=== PATIENT | female | born 1980 | race Caucasian/White ===

== ENCOUNTER 2016-03-09 14:46 | Inpatient (IN) ==
[2016-03-09 15:31] LABS: Bilirubin,Urine Negative (Negative); Blood,Urine Negative (Negative); Clarity,Urine Cloudy (Clear); Color,Urine Yellow (Yellow); Glucose,Urine (UA) Normal (Normal); Ketones,Urine Negative (Negative); Leukocyte Esterase,Urine Trace (Negative); Nitrite,Urine Negative (Negative); PH,Urine 6.5 pH Units (5.0-8.0); Protein,Urine 30 mg/dL (Neg-Trace); Specific Gravity,Urine 1.017 (1.010-1.025); Urobilinogen,Urine Normal (Normal)
[2016-03-09 15:39] LABS: Amphetamine Screen,Urine Negative ng/mL (Cutoff=1000); Barbiturate Screen,Urine Negative ng/mL (Cutoff=200); Benzodiazepines Screen,Urine Negative ng/mL (Cutoff=200); Cannabinoid Screen,Urine Positive ng/mL (Cutoff = 50); Cocaine Screen,Urine Negative ng/mL (Cutoff= 300); Opiate Screen,Urine Negative ng/mL (Cutoff=300); Phencyclidine Screen,Urine Negative ng/mL (Cutoff=25)
[2016-03-09 15:43] LABS: Bacteria,Urine Moderate per hpf (None-Few); WBC,Urine 0-3 per hpf (0-3)
[2016-03-09 15:44] LABS: RBC,Urine 0-3 per hpf (0-3); Squamous Epithelial Cell,Urine Few per lpf (None-Few)
[2016-03-09 15:45] LABS: Basophils # 0.1 K/mcL (0.0-0.2); Basophils % 0.7 %; Eosinophils # 0.5 K/mcL (0.0-0.6); Eosinophils % 3.3 %; Hematocrit 43.4 % (35.3-44.9); Hemoglobin 14.7 g/dL (11.5-15.4); Immature Granulocytes % 0.6 % (0-4); Lymphocytes # 3.3 K/mcL (0.6-4.6); Lymphocytes % 22.1 %; Mean Corpuscular HGB Conc 33.9 g/dL (31.6-35.5); Mean Corpuscular Hemoglobin 30.8 pg (28.0-33.3); Mean Platelet Volume 9.1 fL (9.4-12.4); Monocytes # 0.8 K/mcL (0.0-1.3); Monocytes % 5.2 %; Neutrophils # 10.3 K/mcL (1.6-8.9); Platelet Count 317 K/mcL (140-400); Red Blood Count 4.77 M/mcL (3.82-4.97); Red Cell Distribution Width 12.3 % (11.5-14.5); Segmented Neutrophils % 68.1 %
[2016-03-09 16:03] LABS: BUN/Creatinine Ratio 9 (6-26); Blood Urea Nitrogen 8 mg/dL (7-20); Calcium 9.4 mg/dL (8.6-10.8); Carbon Dioxide 19 mEq/L (19-29); Chloride 112 mEq/L (98-109); Glucose 115 mg/dL (70-99); Osmolality,Calculated 285 (280-300); Potassium 3.6 mEq/L (3.5-4.5); Sodium 138 mEq/L (136-145); eGFR For African Americans > 60 (> 60); eGFR For Non-African Americans > 60 (> 60)
[2016-03-09 16:04] LABS: Acetaminophen < 1.0 mcg/mL (10-30); Ethanol < 10 mg/dL (0-10); Salicylate < 5.0 mg/dL (15-30)
--- NOTE | 2016-03-09 16:05 | Emergency Department Note ---
Disposition Clinical Impression: Suicidal ideation, Bipolar disorder Disposition: Admitted As Inpatient Condition: Fair General Adult HPI - General Chief complaint: ED Psychiatric Symptoms Stated complaint: SI/ needs medication eval Source: patient Limitations: no limitations - History of Present Illness Pain Scale: 0 - Related Data Home Medications Medication Instructions Recorded Confirmed Benztropine [Cogentin] 0.5 mg PO BID 03/09/16 03/09/16 Folic Acid [Folic Acid] 2 mg PO DAILY 03/09/16 03/09/16 [place] Carbonate [[place] 300 mg PO DAILY 03/09/16 03/09/16 Carbonate] [place] Carbonate [[place] 600 mg PO BID 03/09/16 03/09/16 Carbonate] Paliperidone [Paliperidone ER] 3 mg PO DAILY 03/09/16 03/09/16 Allergies Allergy/AdvReac Type Severity Reaction Status Date / Time No Known Allergies Allergy Verified 11/06/15 20:02 Past Medical History - Past Medical History Medical history: Reports: no medical history Psychiatric history: Reports: bipolar - Social History Smoking Status: Current every day smoker Smokeless Tobacco Status: No Alcohol use: Reports: none Drug use: Reports: none Physical Exam - General Limitations: no limitations General appearance: alert, in no apparent distress Course - Reevaluation(s) Reevaluation #1: I saw the patient with resident, Dr. Terrazas. Patient presents with a complaint of depression and suicidal ideation. She has had trouble with this in the past. She denies any medical complaints at this time. No medical problems were identified on physical examination. She is undergoing laboratory screening evaluation at this time. If everything is negative we will contact [facility] to evaluate the patient. Time: 16:05 Vital Signs Temperature 97.1 F L 03/09/16 14:50 Pulse Rate 74 03/09/16 14:50 Respiratory Rate 18 03/09/16 14:50 Blood Pressure 132/87 03/09/16 14:50 O2 Sat by Pulse Oximetry 98 03/09/16 14:50 Temperature 98.6 F 03/10/16 20:08 Pulse Rate 55 03/10/16 20:08 Respiratory Rate 16 03/10/16 20:08 Blood Pressure 122/76 03/10/16 20:08 O2 Sat by Pulse Oximetry 98 03/09/16 15:33 Oxygen Delivery Oxygen Delivery Room Air Medical Decision Making - Lab Data Result diagrams: 03/09/16 15:39 03/09/16 15:39 Lab Results 03/09/16 03/09/16 03/09/16 Range/Units 15:10 15:10 15:39 WBC 15.1 H (4.3-11.1) K/mcL RBC 4.77 (3.82-4.97) M/mcL Hgb 14.7 (11.5-15.4) g/dL Hct 43.4 (35.3-44.9) % MCV 91.0 (83.0-100.0) fL MCH 30.8 (28.0-33.3) pg MCHC 33.9 (31.6-35.5) g/dL RDW 12.3 (11.5-14.5) % Plt Count 317 (140-400) K/mcL MPV 9.1 L (9.4-12.4) fL Immature Gran % 0.6 (0-4) % Seg Neutrophils % 68.1 % Lymphocytes % 22.1 % Monocytes % 5.2 % Eosinophils % 3.3 % Basophils % 0.7 % Neutrophils # 10.3 H (1.6-8.9) K/mcL Lymphocytes # 3.3 (0.6-4.6) K/mcL Monocytes # 0.8 (0.0-1.3) K/mcL Eosinophils # 0.5 (0.0-0.6) K/mcL Basophils # 0.1 (0.0-0.2) K/mcL Sodium (136-145) mEq/L Potassium (3.5-4.5) mEq/L Chloride (98-109) mEq/L Carbon Dioxide (19-29) mEq/L BUN (7-20) mg/dL Creatinine (0.57-1.11) mg/dL Est GFR ( Amer) (> 60) Est GFR (Non-Af Amer) (> 60) BUN/Creatinine Ratio (6-26) Glucose (70-99) mg/dL Calculated Osmolality (280-300) Calcium (8.6-10.8) mg/dL Urine Color Yellow (Yellow) Urine Clarity Cloudy A (Clear) Urine pH 6.5 (5.0-8.0) pH Units Ur Specific [place] 1.017 (1.010-1.025) Urine Protein 30 H (Neg-Trace) mg/dL Urine Glucose (UA) Normal (Normal) mg/dL Urine Ketones Negative (Negative) mg/dL Urine Blood Negative (Negative) Urine Nitrite Negative (Negative) Urine Bilirubin Negative (Negative) Urine Urobilinogen Normal (Normal) mg/dL Ur Leukocyte Esterase Trace H (Negative) Urine Microscopic RBC 0-3 (0-3) per hpf Urine Microscopic WBC 0-3 (0-3) per hpf Ur Squamous Epith Cells Few (None-Few) per lpf Urine Bacteria Moderate H (None-Few) per hpf Salicylates (15-30) mg/dL Urine Opiates Screen Negative (Sdsrpe=694) ng/mL Acetaminophen (10-30) mcg/mL Ur Barbiturates Screen Negative (Qefmqj=933) ng/mL Ur Phencyclidine Scrn Negative (Cutoff=25) ng/mL Ur Amphetamines Screen Negative (Kukqtz=3097) ng/mL U Benzodiazepines Scrn Negative (Ssbvuf=812) ng/mL [place] (0.6-1.2) mEq/L Urine Cocaine Screen Negative (Cutoff= 300) ng/mL U Marijuana (THC) Screen Positive H (Cutoff = 50) ng/mL Ethyl Alcohol (0-10) mg/dL 03/09/16 03/09/16 Range/Units 15:39 15:39 WBC (4.3-11.1) K/mcL RBC (3.82-4.97) M/mcL Hgb (11.5-15.4) g/dL Hct (35.3-44.9) % MCV (83.0-100.0) fL MCH (28.0-33.3) pg MCHC (31.6-35.5) g/dL RDW (11.5-14.5) % Plt Count (140-400) K/mcL MPV (9.4-12.4) fL Immature Gran % (0-4) % Seg Neutrophils % % Lymphocytes % % Monocytes % % Eosinophils % % Basophils % % Neutrophils # (1.6-8.9) K/mcL Lymphocytes # (0.6-4.6) K/mcL Monocytes # (0.0-1.3) K/mcL Eosinophils # (0.0-0.6) K/mcL Basophils # (0.0-0.2) K/mcL Sodium 138 (136-145) mEq/L Potassium 3.6 (3.5-4.5) mEq/L Chloride 112 H (98-109) mEq/L Carbon Dioxide 19 (19-29) mEq/L BUN 8 (7-20) mg/dL Creatinine 0.88 (0.57-1.11) mg/dL Est GFR ( Amer) > 60 (> 60) Est GFR (Non-Af Amer) > 60 (> 60) BUN/Creatinine Ratio 9 (6-26) Glucose 115 H (70-99) mg/dL Calculated Osmolality 285 (280-300) Calcium 9.4 (8.6-10.8) mg/dL Urine Color (Yellow) Urine Clarity (Clear) Urine pH (5.0-8.0) pH Units Ur Specific [place] (1.010-1.025) Urine Protein (Neg-Trace) mg/dL Urine Glucose (UA) (Normal) mg/dL Urine Ketones (Negative) mg/dL Urine Blood (Negative) Urine Nitrite (Negative) Urine Bilirubin (Negative) Urine Urobilinogen (Normal) mg/dL Ur Leukocyte Esterase (Negative) Urine Microscopic RBC (0-3) per hpf Urine Microscopic WBC (0-3) per hpf Ur Squamous Epith Cells (None-Few) per lpf Urine Bacteria (None-Few) per hpf Salicylates < 5.0 L (15-30) mg/dL Urine Opiates Screen (Vaetml=882) ng/mL Acetaminophen < 1.0 L (10-30) mcg/mL Ur Barbiturates Screen (Qdcamk=629) ng/mL Ur Phencyclidine Scrn (Cutoff=25) ng/mL Ur Amphetamines Screen (Aiiihi=0820) ng/mL U Benzodiazepines Scrn (Ydmvix=761) ng/mL [place] 0.7 (0.6-1.2) mEq/L Urine Cocaine Screen (Cutoff= 300) ng/mL U Marijuana (THC) Screen (Cutoff = 50) ng/mL Ethyl Alcohol < 10 (0-10) mg/dL Attestation Statement - Attestation Attestation: I, Dr. Soriano, examined this patient [id number] and my medical decision- making was reviewed with Dr. Terrazas, Resident Physician. I agree with the documented findings, disposition and treatment plan as described except to the extent set forth below. Please see my progress notes for details.
--- NOTE | 2016-03-09 16:23 | Emergency Department Note ---
Disposition Clinical Impression: Suicidal ideation Bipolar disorder Qualifiers: Active/Remission status: currently active Current bipolar episode type: mixed Current episode severity: mild Qualified Code(s): F31.61 - Bipolar disorder, current episode mixed, mild Disposition: Admitted As Inpatient Condition: Fair Referrals: NO,PCP [Primary Care Provider] - Forms: ED Satisfaction Letter Time of Disposition: 18:25 Psych HPI - General Chief Complaint: ED Psychiatric Symptoms Stated Complaint: SI/ needs medication eval Time Seen by Provider: 03/09/16 14:50 Source: patient Mode of arrival: ambulatory Limitations: no limitations Nursing Notes Reviewed: Yes Vital Signs Reviewed: Yes - History of Present Illness HPI Narrative: 35-year-old female history of bipolar, was taking InVega, and lithium however she is only taking lithium now she was told to stop the [place] last week, she endorses worsening thoughts of suicide without a specific plan, worsening depression of the last couple of days. She states that she has a possible low lithium level however she has been compliant on this medication, and her last level was normal a month or 2 ago. She has has a feeling that the lithium level is low. Patient denies chest pain abdominal pain headache recent fevers or chills, dysuria. Concerns for . Pt complaint: suicidal ideation, feels depressed Onset (ago): day(s) History of similar episodes: Yes Improves with: none Worsens with: none Alleged intoxication: No Associated Psychiatric Symptoms: depression, suicidal ideation Associated symptoms: Reports: denies other symptoms. Denies: confusion, headache, shortness of breath, nausea, vomiting Treatments prior to arrival: none Self harm or harm to others: admits thoughts of self harm - Related Data Previous Rx's Medication Instructions Recorded Perphenazine 4 mg PO HS #14 tablet 11/06/15 Allergies Allergy/AdvReac Type Severity Reaction Status Date / Time No Known Allergies Allergy Verified 11/06/15 20:02 Review of Systems: A 14 point ROS was obtained and was negative except as per below or as documented in the HPI. Constitutional: Denies: fever, chills, weakness, weight change Eyes: Denies: eye pain, eye discharge, vision change ENT: Denies: ear pain, throat pain, hearing loss, epistaxis, congestion, Cardiovascular: Denies: chest pain, palpitations, dyspnea on exertion, edema, syncope Respiratory: Denies: cough, dyspnea, wheezes, hemoptysis, stridor Gastrointestinal: Denies: abdominal pain, nausea, vomiting. diarrhea, constipation, hematemesis, hematochezia Genitourinary: Denies: urgency, dysuria, frequency, hematuria Musculoskeletal: Denies: back pain, neck pain, arthralgia, myalgia Integumentary: Denies: rash, abrasion, lesions Neurological: Denies: headache, weakness, numbness, paresthesias, confusion, abnormal gait Psychiatric: depression, suicidal thought Denies: anxiety, s, homicidal thoughts , Endocrine: Denies: fatigue Hematological/Lymphatic: Denies: easy bleeding, easy bruising Allergic/Immunologic: Denies: facial swelling, urticaria All systems ED: reviewed and negative except as stated. Past Medical History - Past Medical History Attestation: Yes The following information was validated with the patient. Source: patient Medical history: Reports: no medical history Psychiatric history: Reports: bipolar - Social History Smoking Status: Current every day smoker Smokeless Tobacco Status: No Alcohol use: Reports: none Drug use: Reports: none Physical Exam General: alert and oriented,appears depressed and dejected Head: NCAT, no lesions Eyes: sclera anicteric, conjunctiva normal, PERRLA bilaterally, EOMI Bilaterally Neck: no lymphadenopathy, trachea midline no deviation, no JVD Resp: CTA bilaterally, no resp distress, symmetric chest rise, no wheezes, rales , or rhonchi bilaterally CV: RRR, normal S1 and S2, no m/g/r, Pulses +2 Rad, +2 DP/PT Abdomen: Soft, NTND, no hepatosplenomegaly, no hernias, Negative Rovsing's sign , Negative Benavidez's sign Back: normal inspection, no tenderness to palpation, Negative CVA tenderness bilaterally Neuro: A&O3, CN II-XII grossly intact bilaterally, no motor or sensory deficits bilaterally, gait normal, GCS 15 [id number] Ext: normal inspection, symmetric Active and Passive ROM UE and LE bilaterally , no pedal edema bilaterally Psych: Flat affect, positive SI, positive depressed Skin: No rashes, skin warm, dry, intact - General Limitations: no limitations General appearance: alert, in no apparent distress Course Course Narrative: There is 35-year-old female with suicidal ideation depression, currently stopping her InVega treatment, will check lithium level vague basic SI workup and evaluation with one A after cleared Vital Signs Temperature 97.1 F L 03/09/16 14:50 Pulse Rate 74 03/09/16 14:50 Respiratory Rate 18 03/09/16 14:50 Blood Pressure 132/87 03/09/16 14:50 O2 Sat by Pulse Oximetry 98 03/09/16 14:50 Temperature 97.1 F L 03/09/16 14:50 Pulse Rate 74 03/09/16 15:33 Respiratory Rate 18 03/09/16 15:33 Blood Pressure 132/87 03/09/16 15:33 O2 Sat by Pulse Oximetry 98 03/09/16 15:33 Oxygen Delivery Oxygen Delivery Room Air Psych - MDM Narrative Medical decision making narrative: 35-year-old female with suicidal ideation admitted to [facility] for further evaluation. Stable condition. - Lab Data Result diagrams: 03/09/16 15:39 03/09/16 15:39 Lab Results 03/09/16 03/09/16 03/09/16 Range/Units 15:10 15:10 15:39 WBC 15.1 H (4.3-11.1) K/mcL RBC 4.77 (3.82-4.97) M/mcL Hgb 14.7 (11.5-15.4) g/dL Hct 43.4 (35.3-44.9) % MCV 91.0 (83.0-100.0) fL MCH 30.8 (28.0-33.3) pg MCHC 33.9 (31.6-35.5) g/dL RDW 12.3 (11.5-14.5) % Plt Count 317 (140-400) K/mcL MPV 9.1 L (9.4-12.4) fL Immature Gran % 0.6 (0-4) % Seg Neutrophils % 68.1 % Lymphocytes % 22.1 % Monocytes % 5.2 % Eosinophils % 3.3 % Basophils % 0.7 % Neutrophils # 10.3 H (1.6-8.9) K/mcL Lymphocytes # 3.3 (0.6-4.6) K/mcL Monocytes # 0.8 (0.0-1.3) K/mcL Eosinophils # 0.5 (0.0-0.6) K/mcL Basophils # 0.1 (0.0-0.2) K/mcL Sodium (136-145) mEq/L Potassium (3.5-4.5) mEq/L Chloride (98-109) mEq/L Carbon Dioxide (19-29) mEq/L BUN (7-20) mg/dL Creatinine (0.57-1.11) mg/dL Est GFR ( Amer) (> 60) Est GFR (Non-Af Amer) (> 60) BUN/Creatinine Ratio (6-26) Glucose (70-99) mg/dL Calculated Osmolality (280-300) Calcium (8.6-10.8) mg/dL Urine Color Yellow (Yellow) Urine Clarity Cloudy A (Clear) Urine pH 6.5 (5.0-8.0) pH Units Ur Specific [place] 1.017 (1.010-1.025) Urine Protein 30 H (Neg-Trace) mg/dL Urine Glucose (UA) Normal (Normal) mg/dL Urine Ketones Negative (Negative) mg/dL Urine Blood Negative (Negative) Urine Nitrite Negative (Negative) Urine Bilirubin Negative (Negative) Urine Urobilinogen Normal (Normal) mg/dL Ur Leukocyte Esterase Trace H (Negative) Urine Microscopic RBC 0-3 (0-3) per hpf Urine Microscopic WBC 0-3 (0-3) per hpf Ur Squamous Epith Cells Few (None-Few) per lpf Urine Bacteria Moderate H (None-Few) per hpf Salicylates (15-30) mg/dL Urine Opiates Screen Negative (Antqtt=069) ng/mL Acetaminophen (10-30) mcg/mL Ur Barbiturates Screen Negative (Okgmbt=760) ng/mL Ur Phencyclidine Scrn Negative (Cutoff=25) ng/mL Ur Amphetamines Screen Negative (Dyewbv=2356) ng/mL U Benzodiazepines Scrn Negative (Dgjqtb=971) ng/mL [place] (0.6-1.2) mEq/L Urine Cocaine Screen Negative (Cutoff= 300) ng/mL U Marijuana (THC) Screen Positive H (Cutoff = 50) ng/mL Ethyl Alcohol (0-10) mg/dL 03/09/16 03/09/16 Range/Units 15:39 15:39 WBC (4.3-11.1) K/mcL RBC (3.82-4.97) M/mcL Hgb (11.5-15.4) g/dL Hct (35.3-44.9) % MCV (83.0-100.0) fL MCH (28.0-33.3) pg MCHC (31.6-35.5) g/dL RDW (11.5-14.5) % Plt Count (140-400) K/mcL MPV (9.4-12.4) fL Immature Gran % (0-4) % Seg Neutrophils % % Lymphocytes % % Monocytes % % Eosinophils % % Basophils % % Neutrophils # (1.6-8.9) K/mcL Lymphocytes # (0.6-4.6) K/mcL Monocytes # (0.0-1.3) K/mcL Eosinophils # (0.0-0.6) K/mcL Basophils # (0.0-0.2) K/mcL Sodium 138 (136-145) mEq/L Potassium 3.6 (3.5-4.5) mEq/L Chloride 112 H (98-109) mEq/L Carbon Dioxide 19 (19-29) mEq/L BUN 8 (7-20) mg/dL Creatinine 0.88 (0.57-1.11) mg/dL Est GFR ( Amer) > 60 (> 60) Est GFR (Non-Af Amer) > 60 (> 60) BUN/Creatinine Ratio 9 (6-26) Glucose 115 H (70-99) mg/dL Calculated Osmolality 285 (280-300) Calcium 9.4 (8.6-10.8) mg/dL Urine Color (Yellow) Urine Clarity (Clear) Urine pH (5.0-8.0) pH Units Ur Specific [place] (1.010-1.025) Urine Protein (Neg-Trace) mg/dL Urine Glucose (UA) (Normal) mg/dL Urine Ketones (Negative) mg/dL Urine Blood (Negative) Urine Nitrite (Negative) Urine Bilirubin (Negative) Urine Urobilinogen (Normal) mg/dL Ur Leukocyte Esterase (Negative) Urine Microscopic RBC (0-3) per hpf Urine Microscopic WBC (0-3) per hpf Ur Squamous Epith Cells (None-Few) per lpf Urine Bacteria (None-Few) per hpf Salicylates < 5.0 L (15-30) mg/dL Urine Opiates Screen (Kftrcs=590) ng/mL Acetaminophen < 1.0 L (10-30) mcg/mL Ur Barbiturates Screen (Tntmvi=856) ng/mL Ur Phencyclidine Scrn (Cutoff=25) ng/mL Ur Amphetamines Screen (Extvad=5806) ng/mL U Benzodiazepines Scrn (Xduiuu=615) ng/mL [place] 0.7 (0.6-1.2) mEq/L Urine Cocaine Screen (Cutoff= 300) ng/mL U Marijuana (THC) Screen (Cutoff = 50) ng/mL Ethyl Alcohol < 10 (0-10) mg/dL Psychiatric Medical Clearance - Medical Clearance Checklist Does the patient have a NEW psychiatric condition?: No Any abnormalities indicating possible medical illness?: No Any history of medical issues?: No Medical History: No Social History Section defined Any abnormal vital signs prior to transfer?: No Current Vitals: Last Vital Signs Temp 97.1 F L 03/09/16 14:50 Pulse 74 03/09/16 15:33 Resp 18 03/09/16 15:33 BP 132/87 03/09/16 15:33 Pulse Ox 98 03/09/16 15:33 Is the patient intoxicated or cognitively impaired?: No Psychiatric Lab Panel: Drug Levels and Toxicity 03/09/16 03/09/16 03/09/16 15:10 15:39 15:39 Urine Opiates Screen Negative Acetaminophen < 1.0 L Ur Barbiturates Screen Negative Ur Phencyclidine Scrn Negative Ur Amphetamines Screen Negative U Benzodiazepines Scrn Negative [place] 0.7 Urine Cocaine Screen Negative U Marijuana (THC) Screen Positive H Ethyl Alcohol < 10 Any abnormalities on the physical exam?: No Any abnormal labs?: No (+Leukocytosis and THC screen, [place]ley WNL) Abnormal Labs: Abnormal lab results WBC 15.1 K/mcL (4.3-11.1) H 03/09/16 15:39 MPV 9.1 fL (9.4-12.4) L 03/09/16 15:39 Neutrophils # 10.3 K/mcL (1.6-8.9) H 03/09/16 15:39 Chloride 112 mEq/L (98-109) H 03/09/16 15:39 Glucose 115 mg/dL (70-99) H 03/09/16 15:39 Urine Clarity Cloudy (Clear) A 03/09/16 15:10 Urine Protein 30 mg/dL (Neg-Trace) H 03/09/16 15:10 Ur Leukocyte Esterase Trace (Negative) H 03/09/16 15:10 Urine Bacteria Moderate per hpf (None-Few) H 03/09/16 15:10 Salicylates < 5.0 mg/dL (15-30) L 03/09/16 15:39 Acetaminophen < 1.0 mcg/mL (10-30) L 03/09/16 15:39 U Marijuana (THC) Screen Positive ng/mL (Cutoff = 50) H 03/09/16 15:10 If abnormals exist; proposed resolution:: Supportive care Is the patient ambulatory?: Yes Is the patient a fall risk?: No Has the patient been medically cleared?: Yes Any acute medical condition require Tx prior to transfer?: No Statement of Medical Clearance: I have evaluated the patient, reviewed diagnostic information, and certify that the patient's medical condition is sufficiently stable that transfer to the psychiatric unit does not pose a significant risk of deterioration.
[2016-03-09] MEDS ORDERED: traZODone 50 MG TABLET PO PRN (18:49)
[2016-03-09] MEDS ORDERED: *HR* LORazepam 1 MG TABLET PO PRN (18:49)
[2016-03-09] MEDS ORDERED: Haloperidol Lactate 5 MG/ML VIAL IM PRN (18:49)
[2016-03-09] MEDS ORDERED: *HR* LORazepam 2 MG/ML VIAL IM PRN (18:49)
[2016-03-09] MEDS ORDERED: Mag Hydrox/Al Hydrox/Simeth 30 ML UDC PO PRN (18:49)
[2016-03-09] MEDS: Lithium Carbonate 300 MG CAPSULE PO SCH (21:09)
[2016-03-09] MEDS: Nicotine 21 MG PATCH.TD24 TD SCH (21:11)
[2016-03-09] MEDS: Ibuprofen 400 MG TABLET PO PRN (21:46)
[2016-03-10] MEDS: Nicotine 21 MG PATCH.TD24 TD SCH (09:35)
--- NOTE | 2016-03-10 10:47 | Psychiatry History & Physical ---
Date of Encounter: 03/10/16 Time of Encounter: 09:00 History of Present Illness Patient Stated Chief Complaint: "I just can't mary on feeling so depressed." Medicare Admission Attestation: For traditional Medicare patients the provided hospital inpatient services are reasonable and necessary and in the case of services not specified as inpatient -only under 42 CFR 419.22 (n), that they are appropriately provided as inpatient services in accordance 42 CFR 412.3. For [facility] the patient may reasonably be expected to be discharged or transferred to a hospital within 96 hours after admission to the Critical [facility]. Admitted From: Emergency Dept History of Present Illness: Ms. Garg is a 35 year old female with a history of bipolar disorder and anxiety who presented to the hospital with increasing depression over the past few months and increasing suicidal ideation without plan. Patient reports that she had been on lithium and Invega. She continues to take the lithium but recently abruptly stopped her and noticed significant decline in her mood. Patient does state that the Invega caused a lot of side effects and that she no longer wants to be on this medicine. Patient reports difficulty motivating, low mood, feelings of hopelessness and helplessness. Patient states that she has been on various medications for a long time and she is worried that she will not ever feel happy again. She has no specific plan but does continue to have thoughts of wanting to hurt herself. She reports that she has tried Abilify in the past and that caused a lot of weight gain and restlessness. Today she denies any grandiosity, decreased need for sleep, impulsivity. She reports her last manic episode was in October of last year. One of patient's stressors is that she has a master's degree in library science but has been unable to work. She currently lives on her own and has no children. Patient denies homicidal ideation. She denies auditory or visual hallucinations. She does report anxiety including racing thoughts and rumination about things that causes her to feel more depressed. Her lithium level was 0.7 on arrival to the hospital. Past Med Surg Social Fam HX - Past Medical History Medical history: no medical history - Past Psychiatric History Psychiatric history: Reports: bipolar, previous psychiatric hospitalization Past psychiatric history details: Patient has a history of previous admissions. She has been on multiple psychiatric medications. She does have a remote history of alcohol and opiate pain pill abuse. Patient has undergone ECT in the past. Family psychiatric history: Yes Family Psychiatric History Details: Patient dad has bipolar disorder as well as her sister. Family History of Suicide: Attempted (Dad and sister) - Past Surgical History Surgical History: no surgical history - Social History Smoking Status: Current every day smoker Smokeless Tobacco Status: No Alcohol use: none Drug use: marijuana Occupational status: disabled Current living situation: Home Medications & Allergies Benztropine [Cogentin] 0.5 mg PO BID 03/09/16 [History] Folic Acid [Folic Acid] 2 mg PO DAILY 03/09/16 [History] [place] Carbonate [[place] Carbonate] 300 mg PO DAILY 03/09/16 [History] [place] Carbonate [[place] Carbonate] 600 mg PO BID 03/09/16 [History] Paliperidone [Paliperidone ER] 3 mg PO DAILY 03/09/16 [History] Allergies No Known Allergies Allergy (Verified 11/06/15 20:02) Review of Systems Constitutional: Denies: fever, chills, weakness, weight change Eyes: Denies: eye pain, vision change Ears, Nose, Throat: Denies: ear pain, throat pain, dental pain, hearing loss, congestion Cardiovascular: Denies: chest pain, palpitations, dyspnea on exertion Respiratory: Denies: cough, dyspnea, wheezes Gastrointestinal: Denies: abdominal pain, nausea, vomiting, diarrhea, constipation Genitourinary male: Denies: urgency, dysuria, frequency, genital lesions Genitourinary female: Denies: urgency, dysuria, frequency, abnormal menses, dyspareunia Musculoskeletal: Denies: joint swelling, joint pain Integumentary: Denies: rash, lesions, pruritus Neurological: Denies: headache, weakness, numbness, memory loss Psychiatric: Reports: depression, anxiety, abnormal sleep pattern, suicidal ideation, anhedonia, difficulty concentrating, hopelessness, irritability, mood swings. Denies: homicidal ideation, auditory hallucinations, visual hallucinations Endocrine: Denies: fatigue, heat or cold intolerance Hematologic/Lymphatic: Denies: easy bruising, lymphadenopathy Allergic/Immunologic: Denies: urticaria, itchy eyes Mental Status Exam Patient orientation: Yes Person, Yes Time, Yes Place Level of alertness: Alert Patient appearance: Appropriate Behavior: cooperative Psychomotor activity: Normal Eye contact: Minimal Contact Mood description: Depressed, Anxious Affect description: tearful, dysphoric Speech pattern: Normal rate, Normal rhythm, Normal tone Speech volume: Normal Thought process: Intact, Logical Thought content: Yes Suicidal ideation, No Homicidal ideation Perceptual disturbances: No Reacting to internal stimuli, No Auditory hallucinations, No Visual hallucinations Attention span: Capable of Focused Attention Memory description: Grossly Intact Patient reliability: Reliable Historian Intelligence estimate: Average Judgment: Limited Insight: Minimal Results - Vital Signs Vital signs: Temp Pulse Resp BP Pulse Ox 97.8 F 57 16 118/83 98 03/10/16 09:00 03/10/16 09:00 03/10/16 09:00 03/10/16 09:00 03/09/16 15:33 - Labs Labs: Laboratory Last Values WBC 15.1 K/mcL (4.3-11.1) H 03/09/16 15:39 RBC 4.77 M/mcL (3.82-4.97) 03/09/16 15:39 Hgb 14.7 g/dL (11.5-15.4) 03/09/16 15:39 Hct 43.4 % (35.3-44.9) 03/09/16 15:39 MCV 91.0 fL (83.0-100.0) 03/09/16 15:39 MCH 30.8 pg (28.0-33.3) 03/09/16 15:39 MCHC 33.9 g/dL (31.6-35.5) 03/09/16 15:39 RDW 12.3 % (11.5-14.5) 03/09/16 15:39 Plt Count 317 K/mcL (140-400) 03/09/16 15:39 MPV 9.1 fL (9.4-12.4) L 03/09/16 15:39 Immature Gran % 0.6 % (0-4) 03/09/16 15:39 Seg Neutrophils % 68.1 % 03/09/16 15:39 Lymphocytes % 22.1 % 03/09/16 15:39 Monocytes % 5.2 % 03/09/16 15:39 Eosinophils % 3.3 % 03/09/16 15:39 Basophils % 0.7 % 03/09/16 15:39 Neutrophils # 10.3 K/mcL (1.6-8.9) H 03/09/16 15:39 Lymphocytes # 3.3 K/mcL (0.6-4.6) 03/09/16 15:39 Monocytes # 0.8 K/mcL (0.0-1.3) 03/09/16 15:39 Eosinophils # 0.5 K/mcL (0.0-0.6) 03/09/16 15:39 Basophils # 0.1 K/mcL (0.0-0.2) 03/09/16 15:39 Sodium 138 mEq/L (136-145) 03/09/16 15:39 Potassium 3.6 mEq/L (3.5-4.5) 03/09/16 15:39 Chloride 112 mEq/L (98-109) H 03/09/16 15:39 Carbon Dioxide 19 mEq/L (19-29) 03/09/16 15:39 BUN 8 mg/dL (7-20) 03/09/16 15:39 Creatinine 0.88 mg/dL (0.57-1.11) 03/09/16 15:39 Est GFR ( Amer) > 60 (> 60) 03/09/16 15:39 Est GFR (Non-Af Amer) > 60 (> 60) 03/09/16 15:39 BUN/Creatinine Ratio 9 (6-26) 03/09/16 15:39 Glucose 115 mg/dL (70-99) H 03/09/16 15:39 Calculated Osmolality 285 (280-300) 03/09/16 15:39 Calcium 9.4 mg/dL (8.6-10.8) 03/09/16 15:39 Urine Color Yellow (Yellow) 03/09/16 15:10 Urine Clarity Cloudy (Clear) A 03/09/16 15:10 Urine pH 6.5 pH Units (5.0-8.0) 03/09/16 15:10 Ur Specific [place] 1.017 (1.010-1.025) 03/09/16 15:10 Urine Protein 30 mg/dL (Neg-Trace) H 03/09/16 15:10 Urine Glucose (UA) Normal mg/dL (Normal) 03/09/16 15:10 Urine Ketones Negative mg/dL (Negative) 03/09/16 15:10 Urine Blood Negative (Negative) 03/09/16 15:10 Urine Nitrite Negative (Negative) 03/09/16 15:10 Urine Bilirubin Negative (Negative) 03/09/16 15:10 Urine Urobilinogen Normal mg/dL (Normal) 03/09/16 15:10 Ur Leukocyte Esterase Trace (Negative) H 03/09/16 15:10 Urine Microscopic RBC 0-3 per hpf (0-3) 03/09/16 15:10 Urine Microscopic WBC 0-3 per hpf (0-3) 03/09/16 15:10 Ur Squamous Epith Cells Few per lpf (None-Few) 03/09/16 15:10 Urine Bacteria Moderate per hpf (None-Few) H 03/09/16 15:10 Salicylates < 5.0 mg/dL (15-30) L 03/09/16 15:39 Urine Opiates Screen Negative ng/mL (Uqaczq=247) 03/09/16 15:10 Acetaminophen < 1.0 mcg/mL (10-30) L 03/09/16 15:39 Ur Barbiturates Screen Negative ng/mL (Fpwwaf=744) 03/09/16 15:10 Ur Phencyclidine Scrn Negative ng/mL (Cutoff=25) 03/09/16 15:10 Ur Amphetamines Screen Negative ng/mL (Bazfxa=1844) 03/09/16 15:10 U Benzodiazepines Scrn Negative ng/mL ([place]=164) 03/09/16 15:10 [place] 0.7 mEq/L (0.6-1.2) 03/09/16 15:39 Urine Cocaine Screen Negative ng/mL (Cutoff= 300) 03/09/16 15:10 U Marijuana (THC) Screen Positive ng/mL (Cutoff = 50) H 03/09/16 15:10 Ethyl Alcohol < 10 mg/dL (0-10) 03/09/16 15:39 Assessment and Plan (1) Bipolar disorder Current visit: Yes Status: Acute Plan: Admit inpatient for safety and stabilization, Close observation, Suicide Precautions per unit protocol, Encourage participation in unit milieu, Group Therapy, Monitor sleep, Monitor appetite Additional Plan: Patient has long-standing history of type I bipolar disorder with recurrent depressive episode. We will restart patient's lithium at outpatient dosage. Start Seroquel 50 mg by mouth daily at bedtime for mood stabilization and sleep. We will start Wellbutrin 100 mg by mouth twice a day for depression symptoms. Encouraged patient to attend group and unit activities. Risks, benefits, side effects, alternatives discussed w/pt: Yes Patient agreeable to treatment: Yes Plans for Post Hospital Care: Home Estimated Length of Stay (Days): 3 Qualifiers: Active/Remission status: currently active Current bipolar episode type: depressed Current episode severity: severe Psychotic features: without psychotic features Qualified Code(s): F31.4 - Bipolar disorder, current episode depressed, severe, without psychotic features (2) Anxiety Current visit: Yes Status: Acute Plan: Admit inpatient for safety and stabilization, Close observation, Suicide Precautions per unit protocol, Encourage participation in unit milieu, Group Therapy, Monitor sleep, Monitor appetite Additional Plan: Encourage positive coping skills to deal with stress. We will avoid habit-forming substances because of remote substance abuse history. Vistaril when necessary for anxiety. Risks, benefits, side effects, alternatives discussed w/pt: Yes Patient agreeable to treatment: Yes
[2016-03-10] MEDS: Lithium Carbonate 300 MG CAPSULE PO SCH (20:27)
[2016-03-10] MEDS: hydrOXYzine pamoate 25 MG CAPSULE PO PRN (20:27)
[2016-03-10] MEDS: Ibuprofen 400 MG TABLET PO PRN (20:28)
[2016-03-11] MEDS: Nicotine 21 MG PATCH.TD24 TD SCH (10:11)
--- NOTE | 2016-03-11 13:34 | Psychiatry Progress Note ---
Date of Encounter: 03/11/16 Time of Encounter: 12:40 Subjective Interval history: Anabelle seen today for follow-up. She reports a fair amount of anxiety today and states that she wakes up and starts "obsessing about everything." Patient was unsure about the Seroquel and states that she thinks the dosage is too strong. She is willing to try decreasing the dosage this evening. Per staff patient slept well. Patient has not noted any side effects from the Wellbutrin. She reports significant irritability and anxiety. She denies panic attacks. Patient has tried Vistaril and states it only helps a little bit. She denies suicidal ideation. However, patient feels very hopeless about her future because she cannot cope with all this anxiety she is having. Review of Systems Psychiatric: Reports: depression, anxiety, abnormal sleep pattern, anhedonia, difficulty concentrating, hopelessness, irritability, mood swings. Denies: suicidal ideation, homicidal ideation, auditory hallucinations, visual hallucinations Objective: Exam Patient orientation: Yes Person, Yes Time, Yes Place Level of alertness: Alert Patient appearance: Appropriate Behavior: cooperative Psychomotor activity: Normal Eye contact: Minimal Contact Mood description: Depressed, Anxious Affect description: tearful, dysphoric Speech pattern: Normal rate, Normal rhythm, Normal tone Speech volume: Normal Thought process: Intact, Logical Thought content: No Suicidal ideation, No Homicidal ideation Perceptual disturbances: No Reacting to internal stimuli, No Auditory hallucinations, No Visual hallucinations Judgment: Limited Insight: Partial Results - Vital Signs Vital Signs: Temp Pulse Resp BP Pulse Ox 98.6 F 54 16 119/79 98 03/11/16 09:00 03/11/16 09:00 03/11/16 09:00 03/11/16 09:00 03/09/16 15:33 Assessment and Plan (1) Bipolar disorder Current visit: Yes Status: Acute Plan: Continue hospitalization, Close observation, Suicide Precautions per unit protocol, Encourage participation in unit milieu, Group Therapy, Monitor sleep, Monitor appetite Additional Plan: Patient initially had told staff she was noticing some improvement in her mood. Upon interview patient states that she feels the same. We will lower the Seroquel to 25 mg by mouth daily at bedtime. Continue lithium. Continue Wellbutrin. Encourage group attendance. Risks, benefits, side effects, alternatives discussed w/pt: Yes Patient agreeable to treatment: Yes Qualifiers: Active/Remission status: currently active Current bipolar episode type: depressed Current episode severity: severe Psychotic features: without psychotic features Qualified Code(s): F31.4 - Bipolar disorder, current episode depressed, severe, without psychotic features (2) Anxiety Current visit: Yes Status: Acute Plan: Continue hospitalization, Close observation, Suicide Precautions per unit protocol, Encourage participation in unit milieu, Group Therapy, Monitor sleep, Monitor appetite Additional Plan: Continue Vistaril for anxiety when necessary. At BuSpar 7.5 mg by mouth twice a day. Encourage positive coping strategies. Risks, benefits, side effects, alternatives discussed w/pt: Yes Patient agreeable to treatment: Yes Consult Discharge Plan - Plan Referrals: [facility] [Outside] - 03/23/16 3:00 pm (The above appointment is with Laure Vargas. You will also see Dr. Ponce on 03/23/2016 at 4:00pm. )
[2016-03-11] MEDS: Lithium Carbonate 300 MG CAPSULE PO SCH (20:47)
[2016-03-11] MEDS: hydrOXYzine pamoate 25 MG CAPSULE PO PRN (22:01)
[2016-03-12] MEDS: Nicotine 21 MG PATCH.TD24 TD SCH (09:22)
--- NOTE | 2016-03-12 12:25 | Psychiatry Progress Note ---
Date of Encounter: 03/12/16 Time of Encounter: 12:00 Subjective Interval history: Anabelle seen today for follow-up. She reports that she feels very anxious and feels that her depression is not getting any better. Patient has not really been participating in group activities. We discussed that The treatment here and is groups and that she will need to attend groups in order to improve her overall mood and coping strategies. She does state that she slept better last night. She did not feel groggy with the lower dose of Seroquel. She does state that the BuSpar help with her anxiety but she does feel the dose could be higher. She is still not aware of any side effects. We discussed that patient has been depressed since last summer and it may take some time for her to improve. Patient voiced understanding and does state that she will go to groups. Encouraged patient to stay out of her room in the daytime. She does report some vague suicidal ideation today. Review of Systems Psychiatric: Reports: depression, anxiety, anhedonia, difficulty concentrating, hopelessness, irritability, mood swings. Denies: abnormal sleep pattern, suicidal ideation, homicidal ideation, auditory hallucinations, visual hallucinations Objective: Exam Patient orientation: Yes Person, Yes Time, Yes Place Level of alertness: Alert Patient appearance: Appropriate Behavior: anxious, tearful Psychomotor activity: Normal Eye contact: Fleeting Contact Mood description: Depressed, Anxious Affect description: tearful, dysphoric Speech pattern: Normal rate, Normal rhythm, Normal tone Speech volume: Normal Thought process: Intact, Logical Thought content: Yes Suicidal ideation, No Homicidal ideation Perceptual disturbances: No Reacting to internal stimuli, No Auditory hallucinations, No Visual hallucinations Judgment: Limited Insight: Minimal Results - Vital Signs Vital Signs: Temp Pulse Resp BP Pulse Ox 98.4 F 72 16 111/73 98 03/12/16 09:00 03/12/16 09:00 03/12/16 09:00 03/12/16 09:00 03/09/16 15:33 Assessment and Plan (1) Bipolar disorder Current visit: Yes Status: Acute Plan: Continue hospitalization, Close observation, Suicide Precautions per unit protocol, Encourage participation in unit milieu, Group Therapy, Monitor sleep, Monitor appetite Additional Plan: Continue Seroquel Continue lithium. Continue Wellbutrin. Encourage group attendance. Patient needs to be out of her room and interacting with peers and staff. Risks, benefits, side effects, alternatives discussed w/pt: Yes Patient agreeable to treatment: Yes Qualifiers: Active/Remission status: currently active Current bipolar episode type: depressed Current episode severity: severe Psychotic features: without psychotic features Qualified Code(s): F31.4 - Bipolar disorder, current episode depressed, severe, without psychotic features (2) Anxiety Current visit: Yes Status: Acute Plan: Continue hospitalization, Close observation, Suicide Precautions per unit protocol, Encourage participation in unit milieu, Group Therapy, Monitor sleep, Monitor appetite Additional Plan: Increase BuSpar to 15 mg twice a day. Encouraged patient to focus on the present and not worry about things getting worse. Discussed with patient that she is in a safe place that she is here to continue to heal. Risks, benefits, side effects, alternatives discussed w/pt: Yes Patient agreeable to treatment: Yes Consult Discharge Plan - Plan Referrals: [facility] [Outside] - 03/23/16 3:00 pm (The above appointment is with Laure Vragas. You will also see Dr. Ponce on 03/23/2016 at 4:00pm. )
[2016-03-12] MEDS: Lithium Carbonate 300 MG CAPSULE PO SCH (21:21)
[2016-03-12] MEDS: hydrOXYzine pamoate 25 MG CAPSULE PO PRN (21:21)
[2016-03-13] MEDS: Nicotine 21 MG PATCH.TD24 TD SCH (09:51)
--- NOTE | 2016-03-13 12:32 | Psychiatry Progress Note ---
Date of Encounter: 03/13/16 Time of Encounter: 12:22 Subjective Interval history: Patient seen and interviewed. History and physical examination reviewed. Patient reporting of feeling anxious and nervous. Endorsing hopelessness and helplessness feelings. Patient is unable to contract for safety off the unit. Talked at length about ongoing challenges in life which includes being unemployed single and does not have a good support network. Patient is giving him some recommendations and advice about going back at work and also to establish and network of friends and family around her. Patient is also encouraged to work on a safety plan. Patient is tolerating medications fairly well. Review of Systems Psychiatric: Reports: depression, anxiety, anhedonia, hopelessness, irritability. Denies: abnormal sleep pattern, suicidal ideation, homicidal ideation, auditory hallucinations, visual hallucinations Objective: Exam Patient orientation: Yes Person, Yes Time, Yes Place Level of alertness: Alert Patient appearance: Appropriate Behavior: anxious, tearful Psychomotor activity: Normal Eye contact: Fleeting Contact Mood description: Depressed, Anxious Affect description: tearful, dysphoric Speech pattern: Normal rate, Normal rhythm, Normal tone Speech volume: Normal Thought process: Intact, Logical Thought content: No Suicidal ideation, No Homicidal ideation Perceptual disturbances: No Reacting to internal stimuli, No Auditory hallucinations, No Visual hallucinations Judgment: Limited Insight: Minimal Results - Vital Signs Vital Signs: Temp Pulse Resp BP Pulse Ox 98 F 63 18 122/81 98 03/13/16 09:00 03/13/16 09:00 03/13/16 09:00 03/13/16 09:00 03/09/16 15:33 Assessment and Plan (1) Bipolar disorder Current visit: Yes Status: Acute Plan: Continue hospitalization, Close observation, Suicide Precautions per unit protocol, Encourage participation in unit milieu, Group Therapy, Monitor sleep, Monitor appetite Additional Plan: Continue with the current regime of medications. Possible discharge tomorrow Risks, benefits, side effects, alternatives discussed w/pt: Yes Patient agreeable to treatment: Yes Qualifiers: Active/Remission status: currently active Current bipolar episode type: depressed Current episode severity: severe Psychotic features: without psychotic features Qualified Code(s): F31.4 - Bipolar disorder, current episode depressed, severe, without psychotic features (2) Anxiety Current visit: Yes Status: Acute Plan: Continue hospitalization, Close observation, Suicide Precautions per unit protocol, Encourage participation in unit milieu, Group Therapy, Monitor sleep, Monitor appetite Additional Plan: Continue with current regime of medications. Possible discharge tomorrow l. Risks, benefits, side effects, alternatives discussed w/pt: Yes Patient agreeable to treatment: Yes Consult Discharge Plan - Plan Referrals: [facility] [Outside] - 03/23/16 3:00 pm (The above appointment is with Laure Vargas. You will also see Dr. Ponce on 03/23/2016 at 4:00pm. )
[2016-03-13] MEDS: Ibuprofen 400 MG TABLET PO PRN (19:47)
[2016-03-13] MEDS: hydrOXYzine pamoate 25 MG CAPSULE PO PRN (19:47)
[2016-03-13] MEDS: Lithium Carbonate 300 MG CAPSULE PO SCH (21:24)
[2016-03-14] MEDS: hydrOXYzine pamoate 25 MG CAPSULE PO PRN (07:22)
[2016-03-14] MEDS: Nicotine 21 MG PATCH.TD24 TD SCH (09:05)
[2016-03-14 09:38] VITALS: BP 142/89
--- NOTE | 2016-03-14 12:30 | Discharge Summary ---
Date of Encounter: 03/14/16 Time of Encounter: 11:47 Diagnosis - Discharge Diagnosis (1) Bipolar disorder Status: Acute Qualifiers: Active/Remission status: currently active Current bipolar episode type: depressed Current episode severity: severe Psychotic features: without psychotic features Qualified Code(s): F31.4 - Bipolar disorder, current episode depressed, severe, without psychotic features (2) Anxiety Status: Acute Medications - Discharge Medications Prescriptions: BuPROPion [Wellbutrin] 150 mg PO BID #60 tablet Buspirone HCl [Buspar] 15 mg PO BID PRN #60 tablet PRN Reason: Anxiety HydrOXYzine Pamoate 50 mg PO TID PRN #90 capsule PRN Reason: Anxiety [place] Carbonate 900 mg PO HS #90 capsule BuPROPion [Wellbutrin] 150 mg PO BID #60 tablet 03/14/16 [Rx] Buspirone HCl [Buspar] 15 mg PO BID PRN #60 tablet 03/14/16 [Rx] HydrOXYzine Pamoate 50 mg PO TID PRN #90 capsule 03/14/16 [Rx] [place] Carbonate 900 mg PO HS #90 capsule 03/14/16 [Rx] Allergies No Known Allergies Allergy (Verified 11/06/15 20:02) Provider Date of admission: 03/09/16 18:26 Primary care physician: PCP NO Discharging clinician: Clau Madsen Assessment and Plan - Patient/Caregiver Discharge Instructions Activity: resume usual activities as tolerated Diet: regular diet - Follow up Plan Follow up with: [facility] [Outside] - 03/23/16 3:00 pm (The above appointment is with Laure Vargas. You will also see Dr. Ponce on 03/23/2016 at 4:00pm. ) Functional capacity at discharge: independent ambulation Overall status at discharge: Stable Disposition: Home, Self-Care Hospital Course Hospital course: Ms. Garg is a 35 year old female who found to have a diagnosis of bipolar disorder and was admitted for severe depression and hopelessness helplessness and suicidal ideations. The patient was admitted and her symptoms diagnoses and treatment plan was reviewed and she was explained the risk benefit side effects alternatives to treatment and consequences of no treatment and after getting informed consent from the [place] was prescribed the following medications lithium 900 mg at bedtime Wellbutrin 150 mg mg twice a day BuSpar 15 mg twice a day hydroxyzine 50 mg 3 times a day and lithium 900 mg at bedtime for her bipolar depression and her anxiety. Patient started to notice improvement in her mood slowly and gradually she became more positive and hopeful. Her suicidal ideations and depressive symptoms started to subside. She attended groups and participated in activities and learn coping skills and developed a good safety plan. She tolerated medications fairly well. Her lithium level was 0.7. Overall patient's condition was stable and she was denying any suicidal or homicidal ideation at the time of discharge. She was not exhibiting any manic or depressive symptoms. Her discharge condition was stable. - Time Spent with Patient Total time spent providing and/or coordinating discharge services: Quality - Multiple Antipsychotics Patient discharged on 2 or more antipsychotic medications: No Procedures - Procedures Procedures: Medication Management, Crisis Stabilization, Supportive Therapy, Group Therapy, Psychoeducational Therapy Mental Status Exam - Mental Status Exam Patient orientation: Yes Person, Yes Time, Yes Place Level of alertness: Alert Patient appearance: Appropriate Behavior: calm, cooperative Psychomotor activity: Normal Eye contact: Maintains Eye Contact Mood description: Euthymic/stable, Anxious Affect description: congruent with mood, full range Speech pattern: Normal rate, Normal rhythm, Normal tone Speech Volume: Normal Thought process: Intact, Logical Thought Content: No Suicidal ideation, No Homicidal ideation Perceptual Disturbances: No Reacting to internal stimuli, No Auditory hallucinations, No Visual hallucinations Judgment: Fair Insight: Partial
== END 2016-03-14 13:20 | disposition home or self-care (01) | DRG 753 ==
LOC: EMEROO 14:46 → SUATTDRO 18:26 → 1ANU 18:26
PROVIDERS: ADMIT Psychiatry & Neurology Psychiatry; ATTEND Psychiatry & Neurology Psychiatry

== ENCOUNTER 2016-04-23 19:14 | Inpatient (IN) ==
[2016-04-23] MEDS ORDERED: *HR* LORazepam 2 MG/ML VIAL IM ONE (19:16)
[2016-04-23] MEDS ORDERED: *HR* LORazepam 1 MG TABLET PO ONE (19:32)
--- NOTE | 2016-04-23 19:32 | Emergency Department Note ---
Disposition Clinical Impression: Suicidal ideation, Manic behavior Disposition: Admitted As Inpatient Condition: Fair Time of Disposition: 23:15 Psych HPI - General Chief Complaint: ED Psychiatric Symptoms Stated Complaint: SI Time Seen by Provider: 04/23/16 19:16 Source: patient, EMS Mode of arrival: ambulatory Limitations: no limitations Nursing Notes Reviewed: Yes Vital Signs Reviewed: Yes - History of Present Illness HPI Narrative: 36-year-old female with history of bipolar, takes lithium, multiple admissions one A for evaluation, patient states that she is bit anxious, she states that she thinks she has pain all over. Per EMS and her mother who are at bedside, she was elevated in the neighbor's house yelling and frantic, unable to stop talking, rapid speech, reporting suicidal ideation. She currently now denies suicidal ideation or HI Pt complaint: suicidal ideation History of similar episodes: Yes Improves with: none Worsens with: none Alleged intoxication: No Associated Psychiatric Symptoms: depression, suicidal ideation, racing thoughts , anxiety Treatments prior to arrival: none Self harm or harm to others: admits thoughts of self harm - Related Data Home Medications Medication Instructions Recorded Confirmed Benztropine [Cogentin] 0.5 mg PO BID 04/24/16 04/24/16 BuPROPion XL (24 HR) [Wellbutrin 300 mg PO DAILY 04/24/16 04/24/16 XL] Folic Acid [Folic Acid] 2 mg PO DAILY 04/24/16 04/24/16 HydrOXYzine Pamoate [Vistaril] 50 mg PO TID PRN 04/24/16 04/24/16 Lamotrigine [Lamictal] 25 mg PO DAILY 04/24/16 04/24/16 Zolpidem [Ambien] 5 mg PO HS 04/24/16 04/24/16 Previous Rx's Medication Instructions Recorded Buspirone HCl [Buspar] 15 mg PO BID PRN #60 tablet 03/14/16 [place] Carbonate 900 mg PO HS #90 capsule 03/14/16 Allergies Allergy/AdvReac Type Severity Reaction Status Date / Time latex Allergy Unknown See Verified 04/24/16 09:42 Comments Review of Systems: A 10 point ROS was obtained from the historian. All other systems were reviewed and negative, except as per below, or as documented in the HPI. Constitutional: States that she has pain all over. Denies: fever, chills, weight changes Eyes: Denies: vision changes, eye pain ENT: Denies: nasal congestion, sore throat CV: Denies: chest pain, palpitations, leg swelling Resp: Denies: cough, dyspnea, wheezes, hemoptysis GI: Denies: abdominal pain, N/V/D/C, hematochezia, melena Denies: dysuria, hematuria MSK: Denies: back pain, neck pain, extremity pain Skin: Denies: new rashes, new lesions Neuro: Denies: ROSE, weakness, sensory changes, gait difficulty Psych:+ suicidal ideation, positive for anxiety All systems ED: reviewed and negative except as stated. Past Medical History - Past Medical History Attestation: Yes The following information was validated with the patient. Source: patient Medical history: Reports: no medical history, non-contributory Surgical history: Reports: no surgical history Psychiatric history: Reports: anxiety, bipolar - Social History Smoking Status: Current every day smoker Smokeless Tobacco Status: No Alcohol use: Reports: none Drug use: Reports: none Physical Exam Constitutional: Anxious, tachycardic, angry yelling, HEENT: NCAT, sclera anicteric, PERRLA bilaterally, normal external ears bilaterally, nasal septum nondeviated, average dentition, MMM Resp: normal chest inspection, CTA bilaterally, no resp distress, symmetric chest rise CV: RRR, no m/g/r, Pulses +2 Rad, +2 DP/PT bilaterally, no pedal edema GI: normal inspection, Soft, NTND, BS present and normoactive Neuro: A&O3, CN II-XII grossly intact bilaterally, no gross motor or sensory deficits bilaterally MSK: normal inspection, bilateral UE and LE with normal ROM and no deformities Psych:tangential speech, flight of ideas, elevated, rapid pressured speech Skin: No rashes, skin warm, dry, intact - General Limitations: no limitations General appearance: alert Course Course Narrative: 36-year-old male with anxiety, goyo, bipolar, psych evaluation, patient is very agitated and hard pink slip in the emergency department, medical clearance after evaluation, - Reevaluation(s) Reevaluation #1: Patient is loud, yelling, pressured speech tangential speech and flight of ideas , appears manic, per mom she was threatening suicidal ideation at home, is escalating and aggressive at bedside, represents a threat to herself, and for that a pink slip was ordered Benadryl Haldol Ativan ordered. Time: 19:46 Vital Signs Temperature 99.3 F 04/23/16 19:15 Pulse Rate 118 04/23/16 19:15 Respiratory Rate 18 04/23/16 19:15 Blood Pressure 135/101 04/23/16 19:15 O2 Sat by Pulse Oximetry 94 L 04/23/16 19:15 Temperature 98 F 04/26/16 08:30 Pulse Rate 63 04/26/16 08:30 Respiratory Rate 18 04/26/16 08:30 Blood Pressure 91/57 04/26/16 08:30 O2 Sat by Pulse Oximetry 94 L 04/23/16 22:59 Oxygen Delivery Oxygen Delivery Room Air Psych - Lab Data Result diagrams: 04/23/16 19:26 04/23/16 19:26 Lab Results 04/23/16 04/23/16 04/23/16 Range/Units 19:26 19:26 19:51 WBC 23.7 H (4.3-11.1) K/mcL RBC 4.96 (3.82-4.97) M/mcL Hgb 15.0 (11.5-15.4) g/dL Hct 44.5 (35.3-44.9) % MCV 89.7 (83.0-100.0) fL MCH 30.2 (28.0-33.3) pg MCHC 33.7 (31.6-35.5) g/dL RDW 12.2 (11.5-14.5) % Plt Count 391 (140-400) K/mcL MPV 9.0 L (9.4-12.4) fL Immature Gran % 0.5 (0-4) % Seg Neutrophils % 68.6 % Lymphocytes % 21.2 % Monocytes % 8.2 % Eosinophils % 1.1 % Basophils % 0.4 % Neutrophils # 16.2 H (1.6-8.9) K/mcL Lymphocytes # 5.0 H (0.6-4.6) K/mcL Monocytes # 2.0 H (0.0-1.3) K/mcL Eosinophils # 0.3 (0.0-0.6) K/mcL Basophils # 0.1 (0.0-0.2) K/mcL Sodium 140 (136-145) mEq/L Potassium 3.3 L (3.5-4.5) mEq/L Chloride 110 H (98-109) mEq/L Carbon Dioxide 12 L (19-29) mEq/L BUN 8 (7-20) mg/dL Creatinine 1.11 (0.57-1.11) mg/dL Est GFR ( Amer) > 60 (> 60) Est GFR (Non-Af Amer) 55 L (> 60) BUN/Creatinine Ratio 7 (6-26) Glucose 99 (70-99) mg/dL Calculated Osmolality 288 (280-300) Calcium 10.0 (8.6-10.8) mg/dL Urine Color (Yellow) Urine Clarity (Clear) Urine pH (5.0-8.0) pH Units Ur Specific Rescue (1.010-1.025) Urine Protein (Neg-Trace) mg/dL Urine Glucose (UA) (Normal) mg/dL Urine Ketones (Negative) mg/dL Urine Blood (Negative) Urine Nitrite (Negative) Urine Bilirubin (Negative) Urine Urobilinogen (Normal) mg/dL Ur Leukocyte Esterase (Negative) Urine Microscopic RBC (0-3) per hpf Urine Microscopic WBC (0-3) per hpf Ur Squamous Epith Cells (None-Few) per lpf Amorphous Sediment (Few) Urine Bacteria (None-Few) per hpf Hyaline Casts Urine Test (Negative) Salicylates < 5.0 L (15-30) mg/dL Urine Opiates Screen (Rpkgmx=236) ng/mL Acetaminophen < 1.0 L (10-30) mcg/mL Ur Barbiturates Screen (Panxkr=676) ng/mL Ur Phencyclidine Scrn (Cutoff=25) ng/mL Ur Amphetamines Screen (Rpxkad=7155) ng/mL U Benzodiazepines Scrn (Gremet=234) ng/mL Vazquez 0.3 L (0.6-1.2) mEq/L Urine Cocaine Screen (Cutoff= 300) ng/mL U Marijuana (THC) Screen (Cutoff = 50) ng/mL Ethyl Alcohol < 10 (0-10) mg/dL 04/23/16 04/23/16 04/23/16 Range/Units 20:17 20:17 20:18 WBC (4.3-11.1) K/mcL RBC (3.82-4.97) M/mcL Hgb (11.5-15.4) g/dL Hct (35.3-44.9) % MCV (83.0-100.0) fL MCH (28.0-33.3) pg MCHC (31.6-35.5) g/dL RDW (11.5-14.5) % Plt Count (140-400) K/mcL MPV (9.4-12.4) fL Immature Gran % (0-4) % Seg Neutrophils % % Lymphocytes % % Monocytes % % Eosinophils % % Basophils % % Neutrophils # (1.6-8.9) K/mcL Lymphocytes # (0.6-4.6) K/mcL Monocytes # (0.0-1.3) K/mcL Eosinophils # (0.0-0.6) K/mcL Basophils # (0.0-0.2) K/mcL Sodium (136-145) mEq/L Potassium (3.5-4.5) mEq/L Chloride (98-109) mEq/L Carbon Dioxide (19-29) mEq/L BUN (7-20) mg/dL Creatinine (0.57-1.11) mg/dL Est GFR ( Amer) (> 60) Est GFR (Non-Af Amer) (> 60) BUN/Creatinine Ratio (6-26) Glucose (70-99) mg/dL Calculated Osmolality (280-300) Calcium (8.6-10.8) mg/dL Urine Color Yellow (Yellow) Urine Clarity Cloudy A (Clear) Urine pH 7.0 (5.0-8.0) pH Units Ur Specific [place] 1.009 L (1.010-1.025) Urine Protein 30 H (Neg-Trace) mg/dL Urine Glucose (UA) Normal (Normal) mg/dL Urine Ketones Negative (Negative) mg/dL Urine Blood Negative (Negative) Urine Nitrite Negative (Negative) Urine Bilirubin Negative (Negative) Urine Urobilinogen Normal (Normal) mg/dL Ur Leukocyte Esterase Negative (Negative) Urine Microscopic RBC 0-3 (0-3) per hpf Urine Microscopic WBC 3-5 H (0-3) per hpf Ur Squamous Epith Cells Many H (None-Few) per lpf Amorphous Sediment Few (Few) Urine Bacteria None Seen (None-Few) per hpf Hyaline Casts Test Not Performed Urine Test Negative (Negative) Salicylates (15-30) mg/dL Urine Opiates Screen Negative (Vpvbye=172) ng/mL Acetaminophen (10-30) mcg/mL Ur Barbiturates Screen Negative (Fknfec=858) ng/mL Ur Phencyclidine Scrn Negative (Cutoff=25) ng/mL Ur Amphetamines Screen Negative (Alyian=8393) ng/mL U Benzodiazepines Scrn Negative (Xlzice=547) ng/mL Vazquez (0.6-1.2) mEq/L Urine Cocaine Screen Negative (Cutoff= 300) ng/mL U Marijuana (THC) Screen Negative (Cutoff = 50) ng/mL Ethyl Alcohol (0-10) mg/dL Psychiatric Medical Clearance - Medical Clearance Checklist Does the patient have a NEW psychiatric condition?: No Any abnormalities indicating possible medical illness?: No Medical History: No Social History Section defined Current Vitals: Last Vital Signs Temp 98 F 04/26/16 08:30 Pulse 63 04/26/16 08:30 Resp 18 04/26/16 08:30 BP 91/57 04/26/16 08:30 Pulse Ox 94 L 04/23/16 22:59 Any abnormal labs?: Yes (20 leukocytes) Abnormal Labs: Abnormal lab results WBC 23.7 K/mcL (4.3-11.1) H 04/23/16 19:26 MPV 9.0 fL (9.4-12.4) L 04/23/16 19:26 Neutrophils # 16.2 K/mcL (1.6-8.9) H 04/23/16 19:26 Lymphocytes # 5.0 K/mcL (0.6-4.6) H 04/23/16 19:26 Monocytes # 2.0 K/mcL (0.0-1.3) H 04/23/16 19:26 Potassium 3.3 mEq/L (3.5-4.5) L 04/23/16 19:26 Chloride 110 mEq/L (98-109) H 04/23/16 19:26 Carbon Dioxide 12 mEq/L (19-29) L 04/23/16 19:26 Est GFR (Non-Af Amer) 55 (> 60) L 04/23/16 19:26 Urine Clarity Cloudy (Clear) A 04/23/16 20:17 Ur Specific Rescue 1.009 (1.010-1.025) L 04/23/16 20:17 Urine Protein 30 mg/dL (Neg-Trace) H 04/23/16 20:17 Urine Microscopic WBC 3-5 per hpf (0-3) H 04/23/16 20:17 Ur Squamous Epith Cells Many per lpf (None-Few) H 04/23/16 20:17 Salicylates < 5.0 mg/dL (15-30) L 04/23/16 19:26 Acetaminophen < 1.0 mcg/mL (10-30) L 04/23/16 19:26 Is the patient ambulatory?: Yes Is the patient a fall risk?: No Any acute medical condition require Tx prior to transfer?: No S.B.A.R. - S.B.A.R. Transition of Care: Chest x-ray for medical clearance and one a evaluation. Situation: Demographics, MOA Background: Presenting Complaint, Relevant PMH, Meds, & Allergies Assessment: Vital Signs, Course and respsone to treatment, Exam Concerns, Patient/Family Expectation, Pertinant Lab Results, Outstanding Labs Recommendation: Barrier(s) to disposition, Recommendation based on pending studies, treatments, or consults S.B.A.REmerson Report Given to: Zac Harrell Repor Time: 23:09 Attestation Statement - Attestation Attestation: For this encounter, I have reviewed the resident, INTERNAL AUDITOR, or PA documentation, treatment plan, and medical decision making; and I have had face to face time with this patient. 36-year-old female with history of bipolar presents in a manic episode. Patient has tangential ideas and pressured speech. Patient became very aggressive when the staff attempted to obtain labs and required medical sedation for protection of the patient and hospital staff. Mother present during this event and agreed with plan. Patient denies suicidal ideation or homicidal ideation however she is definitively in a manic phase of her bipolar disorder. Patient is now calm and resting peacefully in the emergency department with mother at the bedside. Pt is pending behavioral health evaluation. Patient signed out to Dr. Frank pending disposition and possible placement.
[2016-04-23] MEDS ORDERED: Haloperidol Lactate 5 MG/ML VIAL IM ONE (19:42)
[2016-04-23] MEDS ORDERED: Haloperidol Lactate 5 MG/ML VIAL ONE (19:43)
[2016-04-23 20:28] LABS: Basophils # 0.1 K/mcL (0.0-0.2); Basophils % 0.4 %; Eosinophils # 0.3 K/mcL (0.0-0.6); Eosinophils % 1.1 %; Hematocrit 44.5 % (35.3-44.9); Immature Granulocytes % 0.5 % (0-4); Lymphocytes % 21.2 %; Mean Corpuscular HGB Conc 33.7 g/dL (31.6-35.5); Mean Corpuscular Hemoglobin 30.2 pg (28.0-33.3); Mean Corpuscular Volume 89.7 fL (83.0-100.0); Monocytes % 8.2 %; Neutrophils # 16.2 K/mcL (1.6-8.9); Platelet Count 391 K/mcL (140-400); Red Blood Count 4.96 M/mcL (3.82-4.97); Red Cell Distribution Width 12.2 % (11.5-14.5); Segmented Neutrophils % 68.6 %
[2016-04-23 20:31] LABS: Bilirubin,Urine Negative (Negative); Blood,Urine Negative (Negative); Clarity,Urine Cloudy (Clear); Color,Urine Yellow (Yellow); Glucose,Urine (UA) Normal (Normal); Ketones,Urine Negative (Negative); Leukocyte Esterase,Urine Negative (Negative); Nitrite,Urine Negative (Negative); Protein,Urine 30 mg/dL (Neg-Trace); Specific Gravity,Urine 1.009 (1.010-1.025); Urobilinogen,Urine Normal (Normal)
[2016-04-23 20:32] LABS: Bacteria,Urine None Seen per hpf (None-Few); RBC,Urine 0-3 per hpf (0-3); Squamous Epithelial Cell,Urine Many per lpf (None-Few)
[2016-04-23 20:41] LABS: Amorphous Sediment,Urine Few (Few)
[2016-04-23 20:44] LABS: BUN/Creatinine Ratio 7 (6-26); Blood Urea Nitrogen 8 mg/dL (7-20); Carbon Dioxide 12 mEq/L (19-29); Chloride 110 mEq/L (98-109); Glucose 99 mg/dL (70-99); Osmolality,Calculated 288 (280-300); Potassium 3.3 mEq/L (3.5-4.5); Sodium 140 mEq/L (136-145); eGFR For African Americans > 60 (> 60); eGFR For Non-African Americans 55 (> 60)
[2016-04-23 20:46] LABS: Acetaminophen < 1.0 mcg/mL (10-30); Ethanol < 10 mg/dL (0-10); Salicylate < 5.0 mg/dL (15-30)
[2016-04-23 21:07] LABS: Amphetamine Screen,Urine Negative ng/mL (Cutoff=1000); Barbiturate Screen,Urine Negative ng/mL (Cutoff=200); Benzodiazepines Screen,Urine Negative ng/mL (Cutoff=200); Cannabinoid Screen,Urine Negative ng/mL (Cutoff = 50); Cocaine Screen,Urine Negative ng/mL (Cutoff= 300); Opiate Screen,Urine Negative ng/mL (Cutoff=300); Phencyclidine Screen,Urine Negative ng/mL (Cutoff=25)
--- NOTE | 2016-04-24 01:30 | Emergency Department Note ---
Disposition Clinical Impression: Suicidal ideation, Manic behavior Disposition: Admitted As Inpatient Condition: Fair Referrals: NO,PCP [Primary Care Provider] - Forms: ED Satisfaction Letter Psych HPI - General Chief Complaint: ED Psychiatric Symptoms Stated Complaint: psych Time Seen by Provider: 04/23/16 19:16 Source: patient, EMS Mode of arrival: ambulatory - History of Present Illness Improves with: none Worsens with: none Treatments prior to arrival: none - Related Data Previous Rx's Medication Instructions Recorded BuPROPion [Wellbutrin] 150 mg PO BID #60 tablet 03/14/16 Buspirone HCl [Buspar] 15 mg PO BID PRN #60 tablet 03/14/16 HydrOXYzine Pamoate 50 mg PO TID PRN #90 capsule 03/14/16 [place] Carbonate 900 mg PO HS #90 capsule 03/14/16 Allergies Allergy/AdvReac Type Severity Reaction Status Date / Time No Known Allergies Allergy Verified 11/06/15 20:02 Past Medical History - Past Medical History Medical history: Reports: no medical history, non-contributory Surgical history: Reports: no surgical history Psychiatric history: Reports: anxiety, bipolar - Social History Smoking Status: Current every day smoker Smokeless Tobacco Status: No Alcohol use: Reports: none Drug use: Reports: none Physical Exam - General Limitations: no limitations General appearance: alert Course Course Narrative: This patient was signed out at shift change from Dr. Hastings and Dr. Terrazas. Please refer to their notes for complete details of the history and physical examination. At shift change the patient has been medically cleared and is just awaiting evaluation by the psychiatry service. Patient was seen in the emergency department and evaluated by the psychiatry service and is being admitted to . Vital Signs Temperature 99.3 F 04/23/16 19:15 Pulse Rate 118 04/23/16 19:15 Respiratory Rate 18 04/23/16 19:15 Blood Pressure 135/101 04/23/16 19:15 O2 Sat by Pulse Oximetry 94 L 04/23/16 19:15 Temperature 99.3 F 04/23/16 22:59 Pulse Rate 104 04/23/16 22:59 Respiratory Rate 20 04/23/16 22:59 Blood Pressure 126/88 04/23/16 22:59 O2 Sat by Pulse Oximetry 94 L 04/23/16 22:59 Oxygen Delivery Oxygen Delivery Room Air Psych - Lab Data Result diagrams: 04/23/16 19:26 04/23/16 19:26 Lab Results 04/23/16 04/23/16 04/23/16 Range/Units 19:26 19:26 19:51 WBC 23.7 H (4.3-11.1) K/mcL RBC 4.96 (3.82-4.97) M/mcL Hgb 15.0 (11.5-15.4) g/dL Hct 44.5 (35.3-44.9) % MCV 89.7 (83.0-100.0) fL MCH 30.2 (28.0-33.3) pg MCHC 33.7 (31.6-35.5) g/dL RDW 12.2 (11.5-14.5) % Plt Count 391 (140-400) K/mcL MPV 9.0 L (9.4-12.4) fL Immature Gran % 0.5 (0-4) % Seg Neutrophils % 68.6 % Lymphocytes % 21.2 % Monocytes % 8.2 % Eosinophils % 1.1 % Basophils % 0.4 % Neutrophils # 16.2 H (1.6-8.9) K/mcL Lymphocytes # 5.0 H (0.6-4.6) K/mcL Monocytes # 2.0 H (0.0-1.3) K/mcL Eosinophils # 0.3 (0.0-0.6) K/mcL Basophils # 0.1 (0.0-0.2) K/mcL Sodium 140 (136-145) mEq/L Potassium 3.3 L (3.5-4.5) mEq/L Chloride 110 H (98-109) mEq/L Carbon Dioxide 12 L (19-29) mEq/L BUN 8 (7-20) mg/dL Creatinine 1.11 (0.57-1.11) mg/dL Est GFR ( Amer) > 60 (> 60) Est GFR (Non-Af Amer) 55 L (> 60) BUN/Creatinine Ratio 7 (6-26) Glucose 99 (70-99) mg/dL Calculated Osmolality 288 (280-300) Calcium 10.0 (8.6-10.8) mg/dL Urine Color (Yellow) Urine Clarity (Clear) Urine pH (5.0-8.0) pH Units Ur Specific [place] (1.010-1.025) Urine Protein (Neg-Trace) mg/dL Urine Glucose (UA) (Normal) mg/dL Urine Ketones (Negative) mg/dL Urine Blood (Negative) Urine Nitrite (Negative) Urine Bilirubin (Negative) Urine Urobilinogen (Normal) mg/dL Ur Leukocyte Esterase (Negative) Urine Microscopic RBC (0-3) per hpf Urine Microscopic WBC (0-3) per hpf Ur Squamous Epith Cells (None-Few) per lpf Amorphous Sediment (Few) Urine Bacteria (None-Few) per hpf Hyaline Casts Urine Test (Negative) Salicylates < 5.0 L (15-30) mg/dL Urine Opiates Screen (Lyrbul=374) ng/mL Acetaminophen < 1.0 L (10-30) mcg/mL Ur Barbiturates Screen (Rlgnid=289) ng/mL Ur Phencyclidine Scrn (Cutoff=25) ng/mL Ur Amphetamines Screen (Itvstj=8154) ng/mL U Benzodiazepines Scrn (Itvqkh=503) ng/mL Nixa 0.3 L (0.6-1.2) mEq/L Urine Cocaine Screen (Cutoff= 300) ng/mL U Marijuana (THC) Screen (Cutoff = 50) ng/mL Ethyl Alcohol < 10 (0-10) mg/dL 04/23/16 04/23/16 04/23/16 Range/Units 20:17 20:17 20:18 WBC (4.3-11.1) K/mcL RBC (3.82-4.97) M/mcL Hgb (11.5-15.4) g/dL Hct (35.3-44.9) % MCV (83.0-100.0) fL MCH (28.0-33.3) pg MCHC (31.6-35.5) g/dL RDW (11.5-14.5) % Plt Count (140-400) K/mcL MPV (9.4-12.4) fL Immature Gran % (0-4) % Seg Neutrophils % % Lymphocytes % % Monocytes % % Eosinophils % % Basophils % % Neutrophils # (1.6-8.9) K/mcL Lymphocytes # (0.6-4.6) K/mcL Monocytes # (0.0-1.3) K/mcL Eosinophils # (0.0-0.6) K/mcL Basophils # (0.0-0.2) K/mcL Sodium (136-145) mEq/L Potassium (3.5-4.5) mEq/L Chloride (98-109) mEq/L Carbon Dioxide (19-29) mEq/L BUN (7-20) mg/dL Creatinine (0.57-1.11) mg/dL Est GFR ( Amer) (> 60) Est GFR (Non-Af Amer) (> 60) BUN/Creatinine Ratio (6-26) Glucose (70-99) mg/dL Calculated Osmolality (280-300) Calcium (8.6-10.8) mg/dL Urine Color Yellow (Yellow) Urine Clarity Cloudy A (Clear) Urine pH 7.0 (5.0-8.0) pH Units Ur Specific [place] 1.009 L (1.010-1.025) Urine Protein 30 H (Neg-Trace) mg/dL Urine Glucose (UA) Normal (Normal) mg/dL Urine Ketones Negative (Negative) mg/dL Urine Blood Negative (Negative) Urine Nitrite Negative (Negative) Urine Bilirubin Negative (Negative) Urine Urobilinogen Normal (Normal) mg/dL Ur Leukocyte Esterase Negative (Negative) Urine Microscopic RBC 0-3 (0-3) per hpf Urine Microscopic WBC 3-5 H (0-3) per hpf Ur Squamous Epith Cells Many H (None-Few) per lpf Amorphous Sediment Few (Few) Urine Bacteria None Seen (None-Few) per hpf Hyaline Casts Test Not Performed Urine Test Negative (Negative) Salicylates (15-30) mg/dL Urine Opiates Screen Negative (Wuygxv=988) ng/mL Acetaminophen (10-30) mcg/mL Ur Barbiturates Screen Negative (Yextbl=317) ng/mL Ur Phencyclidine Scrn Negative (Cutoff=25) ng/mL Ur Amphetamines Screen Negative (Wczdbn=6220) ng/mL U Benzodiazepines Scrn Negative (Vvcyta=769) ng/mL Nixa (0.6-1.2) mEq/L Urine Cocaine Screen Negative (Cutoff= 300) ng/mL U Marijuana (THC) Screen Negative (Cutoff = 50) ng/mL Ethyl Alcohol (0-10) mg/dL Psychiatric Medical Clearance - Medical Clearance Checklist Medical History: No Social History Section defined Current Vitals: Last Vital Signs Temp 99.3 F 04/23/16 22:59 Pulse 104 02/17/17 22:59 Resp 20 04/23/16 22:59 BP 126/88 04/23/16 22:59 Pulse Ox 94 L 04/23/16 22:59 Psychiatric Lab Panel: Drug Levels and Toxicity 04/23/16 04/23/16 04/23/16 19:26 19:51 20:18 Urine Opiates Screen Negative Acetaminophen < 1.0 L Ur Barbiturates Screen Negative Ur Phencyclidine Scrn Negative Ur Amphetamines Screen Negative U Benzodiazepines Scrn Negative Nixa 0.3 L Urine Cocaine Screen Negative U Marijuana (THC) Screen Negative Ethyl Alcohol < 10 Abnormal Labs: Abnormal lab results WBC 23.7 K/mcL (4.3-11.1) H 04/23/16 19:26 MPV 9.0 fL (9.4-12.4) L 04/23/16 19:26 Neutrophils # 16.2 K/mcL (1.6-8.9) H 04/23/16 19:26 Lymphocytes # 5.0 K/mcL (0.6-4.6) H 04/23/16 19:26 Monocytes # 2.0 K/mcL (0.0-1.3) H 04/23/16 19:26 Potassium 3.3 mEq/L (3.5-4.5) L 04/23/16 19:26 Chloride 110 mEq/L (98-109) H 04/23/16 19:26 Carbon Dioxide 12 mEq/L (19-29) L 04/23/16 19:26 Est GFR (Non-Af Amer) 55 (> 60) L 04/23/16 19:26 Urine Clarity Cloudy (Clear) A 04/23/16 20:17 Ur Specific [place] 1.009 (1.010-1.025) L 04/23/16 20:17 Urine Protein 30 mg/dL (Neg-Trace) H 04/23/16 20:17 Urine Microscopic WBC 3-5 per hpf (0-3) H 04/23/16 20:17 Ur Squamous Epith Cells Many per lpf (None-Few) H 04/23/16 20:17 Salicylates < 5.0 mg/dL (15-30) L 04/23/16 19:26 Acetaminophen < 1.0 mcg/mL (10-30) L 04/23/16 19:26 Nixa 0.3 mEq/L (0.6-1.2) L 04/23/16 19:51 Statement of Medical Clearance: I have evaluated the patient, reviewed diagnostic information, and certify that the patient's medical condition is sufficiently stable that transfer to the psychiatric unit does not pose a significant risk of deterioration.
[2016-04-24] MEDS ORDERED: Mag Hydrox/Al Hydrox/Simeth 30 ML UDC PO PRN (01:50)
[2016-04-24] MEDS ORDERED: MOM Conc 10 ML UD.LIQ PO PRN (01:50)
[2016-04-24] MEDS ORDERED: *HR* LORazepam 2 MG/ML VIAL IM PRN ×2 (01:50→01:57)
[2016-04-24] MEDS ORDERED: *HR* LORazepam 1 MG TABLET PO PRN ×2 (01:50→01:57)
[2016-04-24] MEDS ORDERED: Haloperidol Lactate 5 MG/ML VIAL IM PRN (01:50)
[2016-04-24] MEDS ORDERED: hydrOXYzine pamoate 25 MG CAPSULE PO PRN (01:50)
[2016-04-24] MEDS ORDERED: Lithium Carbonate 300 MG CAPSULE PO SCH (02:15)
[2016-04-24] MEDS: lamoTRIgine 25 MG TABLET PO SCH (09:29)
[2016-04-24] MEDS: Vitamin B Complex/Vit C/Vit E 1 EACH TABLET PO SCH (09:29)
--- NOTE | 2016-04-24 12:21 | Psychiatry History & Physical ---
Date of Encounter: 04/24/16 Time of Encounter: 12:19 History of Present Illness Patient Stated Chief Complaint: "i dont know what is wrong" Medicare Admission Attestation: For traditional Medicare patients the provided hospital inpatient services are reasonable and necessary and in the case of services not specified as inpatient -only under 42 CFR 419.22 (n), that they are appropriately provided as inpatient services in accordance 42 CFR 412.3. For Critical Access Hospital the patient may reasonably be expected to be discharged or transferred to a hospital within 96 hours after admission to the Critical Access Hospital. Admitted From: Emergency Dept Plans for Post Hospital Care: Home History of Present Illness: Ms. Garg is a 36 year old female with bipolar disorder admitted to the behavioral health unit for safety and stabilization. Patient takes lithium has had multiple admissions on one A for evaluation and medication management. Patient stated that in the ER she was anxious and that she thinks that she has pain all over. on evalaution with pt she reports "i need to get be better". she reports she hasnt been doing good and was unsable to let this provider if she has been on her lithium. When pt was told her lithium was 0.3 she reports not being able to remember if she took her meds. Pt was a very poor historian she reported being "tired". Per EMS and mother who were patient's bedside in the ED reported that she was very manic and elevated and was in the neighbor's house yelling and frantic was unable to stop talking was having rapid speech and according to mother she was having suicidal ideations which she had reported at the time of evaluation in the ED she did deny suicide ideation or homicidal ideation. [place] level was done which showed there was below normal of 0.3 unable to assess the patient has been compliant with her medication not. On evaluation this morning this provider did go to patient's room due to her getting a when necessary medication last night so she was not able to wake up patient was a poor historian secondary to being very tired and lethargic for evaluation. Will obtain more information from collateral information family and will restart lithium and home medications. Past Med Surg Social Fam HX - Past Medical History Medical history: no medical history, non-contributory - Past Psychiatric History Psychiatric history: Reports: anxiety, bipolar Past psychiatric history details: inpatient hospitalizations: numerous, last admission at [facility]: unable to assess Past meds: pt reports " i dont know" Family psychiatric history: Unknown Family History of Suicide: Unknown - Past Surgical History Surgical History: no surgical history - Social History Smoking Status: Current every day smoker Smokeless Tobacco Status: No Alcohol use: none Drug use: none Medications & Allergies Buspirone HCl [Buspar] 15 mg PO BID PRN #60 tablet 03/14/16 [Rx] [place] Carbonate 900 mg PO HS #90 capsule 03/14/16 [Rx] Benztropine [Cogentin] 0.5 mg PO BID 04/24/16 [History] BuPROPion XL (24 HR) [Wellbutrin XL] 300 mg PO DAILY 04/24/16 [History] Folic Acid [Folic Acid] 2 mg PO DAILY 04/24/16 [History] HydrOXYzine Pamoate [Vistaril] 50 mg PO TID PRN 04/24/16 [History] Lamotrigine [Lamictal] 25 mg PO DAILY 04/24/16 [History] Zolpidem [Ambien] 5 mg PO HS 04/24/16 [History] Allergies latex Allergy (Unknown, Verified 04/24/16 09:42) See Comments UNSURE OF REACTION- LISTED ON PATIENT'S [facility] MED LIST Review of Systems Psychiatric: Reports: anxiety, abnormal sleep pattern, auditory hallucinations, difficulty concentrating, mood swings Mental Status Exam Patient orientation: Yes Person, Yes Time, Yes Place, Yes Circumstance Level of alertness: Sedated Patient appearance: Disheveled Behavior: nervous, anxious, restless Psychomotor activity: Increased Intelligence estimate: Average Results - Vital Signs Vital signs: Temp Pulse Resp BP Pulse Ox 98.4 F 90 18 123/94 94 L 04/24/16 09:00 04/24/16 09:00 04/24/16 09:00 04/24/16 09:00 04/23/16 22:59 - Labs Labs: Laboratory Last Values WBC 23.7 K/mcL (4.3-11.1) H 04/23/16 19:26 RBC 4.96 M/mcL (3.82-4.97) 04/23/16 19:26 Hgb 15.0 g/dL (11.5-15.4) 04/23/16 19:26 Hct 44.5 % (35.3-44.9) 04/23/16 19:26 MCV 89.7 fL (83.0-100.0) 04/23/16 19: MCH 30.2 pg (28.0-33.3) 04/23/16 19: MCHC 33.7 g/dL (31.6-35.5) 04/23/16 19: RDW 12.2 % (11.5-14.5) 04/23/16 19: Plt Count 391 K/mcL (140-400) 04/23/16 19: MPV 9.0 fL (9.4-12.4) L 04/23/16 19: Immature Gran % 0.5 % (0-4) 04/23/16: Seg Neutrophils % 68.6 % 04/23/16 19: Lymphocytes % 21.2 % 04/23/16 19: Monocytes % 8.2 % 04/23/16 19: Eosinophils % 1.1 % 04/23/16: Basophils % 0.4 % 04/23/16 19: Neutrophils # 16.2 K/mcL (1.6-8.9) H 04/23/16 19: Lymphocytes # 5.0 K/mcL (0.6-4.6) H 04/23/16 19: Monocytes # 2.0 K/mcL (0.0-1.3) H 04/23/16 19: Eosinophils # 0.3 K/mcL (0.0-0.6) 04/23/16 19: Basophils # 0.1 K/mcL (0.0-0.2) 04/23/16 19: Sodium 140 mEq/L (136-145) 04/23/16 19: Potassium 3.3 mEq/L (3.5-4.5) L 04/23/16 19: Chloride 110 mEq/L (98-109) H 04/23/16 19: Carbon Dioxide 12 mEq/L (19-29) L 04/23/16 19: BUN 8 mg/dL (7-20) 04/23/16 19: Creatinine 1.11 mg/dL (0.57-1.11) 04/23/16 19: Est GFR ( Amer) > 60 (> 60) 04/23/16 19:26 Est GFR (Non-Af Amer) 55 (> 60) L 04/23/16 19:26 BUN/Creatinine Ratio 7 (6-26) 04/23/16 19: Glucose 99 mg/dL (70-99) 04/23/16 19:26 Calculated Osmolality 288 (280-300) 04/23/16 19: Calcium 10.0 mg/dL (8.6-10.8) 04/23/16 19: Urine Color Yellow (Yellow) 04/23/16 20: Urine Clarity Cloudy (Clear) A 04/23/16 20: Urine pH 7.0 pH Units (5.0-8.0) 04/23/16 20: Ur Specific [place] 1.009 (1.010-1.025) L 04/23/16 20: Urine Protein 30 mg/dL (Neg-Trace) H 04/23/16 20: Urine Glucose (UA) Normal mg/dL (Normal) 04/23/16 20: Urine Ketones Negative mg/dL (Negative) 04/23/16 20: Urine Blood Negative (Negative) 04/23/16 20: Urine Nitrite Negative (Negative) 04/23/16 20: Urine Bilirubin Negative (Negative) 04/23/16 20: Urine Urobilinogen Normal mg/dL (Normal) 04/23/16 20: Ur Leukocyte Esterase Negative (Negative) 04/23/16 20:17 Urine Microscopic RBC 0-3 per hpf (0-3) 04/23/16 20:17 Urine Microscopic WBC 3-5 per hpf (0-3) H 04/23/16 20:17 Ur Squamous Epith Cells Many per lpf (None-Few) H 04/23/16 20:17 Amorphous Sediment Few (Few) 04/23/16 20:17 Urine Bacteria None Seen per hpf (None-Few) 04/23/16 20: Hyaline Casts Test Not Performed 04/23/16 20: Urine Test Negative (Negative) 04/23/16 20: Salicylates < 5.0 mg/dL (15-30) L 04/23/16 19:26 Urine Opiates Screen Negative ng/mL (Oehmad=006) 04/23/16 20: Acetaminophen < 1.0 mcg/mL (10-30) L 04/23/16 19:26 Ur Barbiturates Screen Negative ng/mL (Qfmbip=577) 04/23/16 20:18 Ur Phencyclidine Scrn Negative ng/mL (Cutoff=25) 04/23/16 20:18 Ur Amphetamines Screen Negative ng/mL (Uoohwy=0539) 04/23/16 20:18 U Benzodiazepines Scrn Negative ng/mL (Omkqvi=168) 04/23/16 20:18 [place] 0.3 mEq/L (0.6-1.2) L 04/23/16 19:51 Urine Cocaine Screen Negative ng/mL (Cutoff= 300) 04/23/16 20:18 U Marijuana (THC) Screen Negative ng/mL (Cutoff = 50) 04/23/16 20:18 Ethyl Alcohol < 10 mg/dL (0-10) 04/23/16 19:26 Assessment and Plan (1) Bipolar 1 disorder Current visit: Yes Status: Acute Plan: Admit inpatient for safety and stabilization, Encourage participation in unit milieu, Monitor sleep, Monitor appetite, Family/Supportive other meeting Additional Plan: 04/24: start lithium 300 mg tid for mood sx's Risks, benefits, side effects, alternatives discussed w/pt: Yes Patient agreeable to treatment: Yes Plans for Post Hospital Care: Home
[2016-04-24] MEDS ORDERED: BuPROPion XL (24 HR) 150 MG TABLET PO SCH (12:30)
[2016-04-24] MEDS: Lithium Carbonate 300 MG CAPSULE PO SCH ×2 (14:47→20:57)
[2016-04-24] MEDS: Acetaminophen 325 MG TABLET PO PRN ×2 (17:14→23:51)
[2016-04-24] MEDS: traZODone 50 MG TABLET PO PRN (20:57)
[2016-04-24] MEDS: Ibuprofen 400 MG TABLET PO PRN (22:16)
[2016-04-25] MEDS: Vitamin B Complex/Vit C/Vit E 1 EACH TABLET PO SCH (08:48)
[2016-04-25] MEDS: lamoTRIgine 25 MG TABLET PO SCH (08:49)
[2016-04-25] MEDS: Lithium Carbonate 300 MG CAPSULE PO SCH ×3 (08:49→20:05)
--- NOTE | 2016-04-25 09:29 | Psychiatry Progress Note ---
Date of Encounter: 04/25/16 Time of Encounter: 09:27 Subjective Interval history: Patient seen and evaluated this morning. Patient continues to be very manic with rapid pressured speech. Patient reports that the only thing that works for his lithium and that is all that she wants to be on patient reported having some trouble with sleep and just wanted something as needed patient reported she does not like trazodone and or Seroquel so we discussed doxepin and making an as needed patient was agreeable to this patient was much better today and cooperative patient has been medication compliant patient has been very intrusive intrusive and needs to be redirected at times. Patient reports that she understands she needs to stay here until she gets better patient did exhibit some tremor in her hand which she reports has been chronic and has been there a long time reports that she has no disturbance but that we did talk about propanolol to help with the tremor patient reports she would think about it and that this provider later. Review of Systems Psychiatric: Reports: anxiety, abnormal sleep pattern, auditory hallucinations, difficulty concentrating, mood swings Objective: Exam Patient orientation: Yes Person, Yes Time, Yes Place, Yes Circumstance Level of alertness: Alert, Sedated Patient appearance: Disheveled Behavior: nervous, anxious, restless, impulsive Psychomotor activity: Increased Mood description: Elevated, Euphoric, Expansive, Labile Affect description: full range, labile Speech pattern: Excessive, Pressured Speech volume: Normal Thought process: Flight of Ideas Thought content: Yes Intact Judgment: Limited Insight: Partial Results - Vital Signs Vital Signs: Temp Pulse Resp BP Pulse Ox 98.4 F 75 16 126/90 94 L 04/24/16 21:00 04/24/16 21:00 04/24/16 21:00 04/24/16 21:00 04/23/16 22:59 Assessment and Plan (1) Bipolar 1 disorder Current visit: Yes Status: Acute Additional Plan: 04/25: start doxepin for sleep, pt reprots she will consider propranol for tremor and performance anxiety 04/24: start lithium 300 mg tid for mood sx's Risks, benefits, side effects, alternatives discussed w/pt: Yes Patient agreeable to treatment: Yes Consult Discharge Plan - Plan Referrals: NO,PCP [Primary Care Provider] -
[2016-04-25] MEDS: Acetaminophen 325 MG TABLET PO PRN ×2 (09:52→23:03)
[2016-04-25] MEDS: Ibuprofen 400 MG TABLET PO PRN (23:34)
[2016-04-25] MEDS: traZODone 50 MG TABLET PO PRN (23:53)
[2016-04-26] MEDS: Acetaminophen 325 MG TABLET PO PRN (07:47)
[2016-04-26] MEDS: Ibuprofen 400 MG TABLET PO PRN ×2 (08:13→22:01)
[2016-04-26] MEDS: Lithium Carbonate 300 MG CAPSULE PO SCH ×3 (08:30→21:19)
[2016-04-26] MEDS: lamoTRIgine 25 MG TABLET PO SCH (08:30)
[2016-04-26] MEDS: Vitamin B Complex/Vit C/Vit E 1 EACH TABLET PO SCH (08:30)
--- NOTE | 2016-04-26 12:18 | Psychiatry Progress Note ---
Date of Encounter: 04/26/16 Time of Encounter: 12:16 Subjective Interval history: Patient seen for follow-up with nursing staff. Nursing notes indicates patient is labile and manic at times she can, she is concerned about her medication adjustment. On interview she is cooperative, discussed her medication and recommended increasing Lamictal and repeating lithium level and she is agreeable. She denies any suicidal or homicidal ideation and her sleep is improved with trazodone. Review of Systems Psychiatric: Reports: anxiety, abnormal sleep pattern, difficulty concentrating , mood swings Objective: Exam Patient orientation: Yes Person, Yes Time, Yes Place, Yes Circumstance Level of alertness: Alert Patient appearance: Appropriate, Well Groomed, Disheveled Behavior: cooperative, nervous, anxious Psychomotor activity: Increased Eye contact: Maintains Eye Contact Mood description: Expansive, Labile Affect description: congruent with mood, labile Speech pattern: Appropriate, Excessive Speech volume: Normal Thought process: Tangential, Flight of Ideas Thought content: Yes Intact, No Suicidal ideation, No Homicidal ideation Perceptual disturbances: No Auditory hallucinations, No Visual hallucinations Judgment: Limited Insight: Partial Results - Vital Signs Vital Signs: Temp Pulse Resp BP Pulse Ox 98 F 63 18 91/57 94 L 04/26/16 08:30 04/26/16 08:30 04/26/16 08:30 04/26/16 08:30 04/23/16 22:59 Assessment and Plan (1) Bipolar 1 disorder Current visit: Yes Status: Acute Plan: Continue hospitalization, Close observation, Suicide Precautions per unit protocol, Encourage participation in unit milieu, Group Therapy, Monitor sleep, Monitor appetite Additional Plan: We will increase Lamictal to 50 mg at at bedtime. We will order a lithium level for tomorrow. Risks, benefits, side effects, alternatives discussed w/pt: Yes Patient agreeable to treatment: Yes Consult Discharge Plan - Plan Referrals: NO,PCP [Primary Care Provider] -
[2016-04-26] MEDS ORDERED: lamoTRIgine 25 MG TABLET PO ONE (12:44)
[2016-04-26] MEDS: traZODone 50 MG TABLET PO PRN (22:01)
[2016-04-27] MEDS: Acetaminophen 325 MG TABLET PO PRN ×2 (00:52→23:52)
[2016-04-27] MEDS: hydrOXYzine pamoate 25 MG CAPSULE PO PRN ×2 (03:33→21:52)
[2016-04-27] MEDS: lamoTRIgine 25 MG TABLET PO SCH (09:16)
[2016-04-27] MEDS: Lithium Carbonate 300 MG CAPSULE PO SCH ×3 (09:17→21:51)
[2016-04-27] MEDS: Vitamin B Complex/Vit C/Vit E 1 EACH TABLET PO SCH (09:17)
--- NOTE | 2016-04-27 12:29 | Psychiatry Progress Note ---
Date of Encounter: 04/27/16 Time of Encounter: 12:24 Subjective Interval history: Patient seen for follow-up. Nursing staff, patient is less manic, she slept 6 hours and she feels very good. 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 Speech is less pressured and more organized. She denies any suicidal or homicidal ideation. She is pleased with her current medication. Her lithium level is 1.0 which is therapeutic, shared the results with patient and she is pleased. Also she is tolerating the increasing Lamictal to 50 mg. Review of Systems Psychiatric: Reports: anxiety, abnormal sleep pattern, difficulty concentrating , mood swings Objective: Exam Patient orientation: Yes Person, Yes Time, Yes Place, Yes Circumstance Level of alertness: Alert Patient appearance: Appropriate, Well Groomed, Disheveled Behavior: cooperative, nervous, anxious Psychomotor activity: Normal Eye contact: Maintains Eye Contact Mood description: Expansive, Labile Affect description: congruent with mood, labile Speech pattern: Appropriate, Excessive Speech volume: Normal Thought process: Tangential, Flight of Ideas Thought content: Yes Intact, No Suicidal ideation, No Homicidal ideation Perceptual disturbances: No Auditory hallucinations, No Visual hallucinations Judgment: Limited Insight: Partial Results - Vital Signs Vital Signs: Temp Pulse Resp BP Pulse Ox 98.2 F 69 16 113/67 94 L 04/27/16 09:00 04/27/16 09:00 04/27/16 09:00 04/27/16 09:00 04/23/16 22:59 - Drug Levels and Toxicology Drug Levels and Toxicology: Drug Levels and Toxicity 04/26/16 12:31 [place] 1.0 - Labs Labs: Laboratory Results - last 24 hr 04/26/16 12:31 [place] 1.0 Assessment and Plan (1) Bipolar 1 disorder Current visit: Yes Status: Acute Plan: Continue hospitalization, Close observation, Suicide Precautions per unit protocol, Encourage participation in unit milieu, Group Therapy, Monitor sleep, Monitor appetite Risks, benefits, side effects, alternatives discussed w/pt: Yes Patient agreeable to treatment: Yes Consult Discharge Plan - Plan Referrals: NO,PCP [Primary Care Provider] -
[2016-04-27] MEDS: traZODone 50 MG TABLET PO PRN (21:51)
[2016-04-27] MEDS: Ibuprofen 400 MG TABLET PO PRN (21:51)
[2016-04-28] MEDS: Acetaminophen 325 MG TABLET PO PRN (07:42)
[2016-04-28] MEDS: lamoTRIgine 25 MG TABLET PO SCH (08:50)
[2016-04-28] MEDS: Vitamin B Complex/Vit C/Vit E 1 EACH TABLET PO SCH (08:51)
[2016-04-28] MEDS: Lithium Carbonate 300 MG CAPSULE PO SCH ×3 (08:51→20:28)
--- NOTE | 2016-04-28 12:23 | Psychiatry Progress Note ---
Date of Encounter: 04/28/16 Time of Encounter: 12:19 Subjective Interval history: Patient is seen for follow-up. Nursing staff notes indicate patient is less manic, she is pleased with her current medications. She is sleeping better and noticed improvement in her sleep when she is not smoking or taking caffeine. I discussed with her that she needed to cut down on smoking and caffeine in order for medication to work. She is agreeable. Denied any suicidal ideation, planning to have a job to stay busy. Review of Systems Psychiatric: Reports: anxiety, mood swings Objective: Exam Patient orientation: Yes Person, Yes Time, Yes Place, Yes Circumstance Level of alertness: Alert Patient appearance: Appropriate, Well Groomed, Disheveled Behavior: cooperative, anxious Psychomotor activity: Normal Eye contact: Maintains Eye Contact Mood description: Expansive, Labile Affect description: congruent with mood, labile Speech pattern: Normal rate, Normal rhythm, Normal tone, Appropriate, Excessive Speech volume: Normal Thought process: Tangential, Flight of Ideas Thought content: Yes Intact, No Suicidal ideation, No Homicidal ideation Perceptual disturbances: No Auditory hallucinations, No Visual hallucinations Judgment: Fair Insight: Partial Results - Vital Signs Vital Signs: Temp Pulse Resp BP Pulse Ox 97.8 F 63 16 125/87 94 L 04/28/16 08:55 04/28/16 08:55 04/28/16 08:55 04/28/16 08:55 04/23/16 22:59 Assessment and Plan (1) Bipolar 1 disorder Current visit: Yes Status: Acute Plan: Continue hospitalization, Close observation, Suicide Precautions per unit protocol, Encourage participation in unit milieu, Group Therapy, Monitor sleep, Monitor appetite Risks, benefits, side effects, alternatives discussed w/pt: Yes Patient agreeable to treatment: Yes Consult Discharge Plan - Plan Referrals: [facility] [Outside] (You are scheduled to see Lupe Tadeo, psychiatric prescriber, on 04/30/2016 at 4:00pm. You will also see Stef Vargas for counseling on )
[2016-04-28] MEDS: traZODone 50 MG TABLET PO PRN (20:29)
[2016-04-29] MEDS: Lithium Carbonate 300 MG CAPSULE PO SCH (08:33)
[2016-04-29] MEDS: Vitamin B Complex/Vit C/Vit E 1 EACH TABLET PO SCH (08:33)
[2016-04-29] MEDS: lamoTRIgine 25 MG TABLET PO SCH (08:33)
[2016-04-29 09:22] VITALS: BP 109/71
[2016-04-29 10:06] LABS: Basophils # 0.1 K/mcL (0.0-0.2); Basophils % 0.6 %; Eosinophils # 0.4 K/mcL (0.0-0.6); Hematocrit 41.7 % (35.3-44.9); Immature Granulocytes % 0.4 % (0-4); Lymphocytes # 3.8 K/mcL (0.6-4.6); Lymphocytes % 31.2 %; Mean Corpuscular HGB Conc 33.6 g/dL (31.6-35.5); Mean Corpuscular Hemoglobin 30.1 pg (28.0-33.3); Mean Corpuscular Volume 89.7 fL (83.0-100.0); Mean Platelet Volume 9.1 fL (9.4-12.4); Monocytes # 0.8 K/mcL (0.0-1.3); Monocytes % 6.7 %; Neutrophils # 7.2 K/mcL (1.6-8.9); Platelet Count 347 K/mcL (140-400); Red Blood Count 4.65 M/mcL (3.82-4.97); Red Cell Distribution Width 12.1 % (11.5-14.5); Segmented Neutrophils % 58.1 %
--- NOTE | 2016-04-29 11:23 | Discharge Summary ---
Date of Encounter: 04/29/16 Time of Encounter: 10:30 Diagnosis - Discharge Diagnosis (1) Bipolar 1 disorder Status: Acute Medications - Discharge Medications Prescriptions: Benztropine [Cogentin] 0.5 mg PO BID #60 tablet Doxepin [Sinequan] 50 mg PO HS #60 capsule Lamotrigine [Lamictal] 50 mg PO DAILY #60 tablet TraZODone 50 mg PO HS PRN #30 tablet PRN Reason: Insomnia Vitamin B Complex/Vit C/Vit E [Stresstab] 1 each PO DAILY #30 tablet Buspirone HCl [Buspar] 15 mg PO BID PRN #60 tablet 03/14/16 [Rx] [place] Carbonate 900 mg PO HS #90 capsule 03/14/16 [Rx] Folic Acid 2 mg PO DAILY 04/24/16 [History] HydrOXYzine Pamoate [Vistaril] 50 mg PO TID PRN 04/24/16 [History] Zolpidem [Ambien] 5 mg PO HS 04/24/16 [History] Benztropine [Cogentin] 0.5 mg PO BID #60 tablet 04/29/16 [Rx] Doxepin [Sinequan] 50 mg PO HS #60 capsule 04/29/16 [Rx] Lamotrigine [Lamictal] 50 mg PO DAILY #60 tablet 04/29/16 [Rx] TraZODone 50 mg PO HS PRN #30 tablet 04/29/16 [Rx] Vitamin B Complex/Vit C/Vit E [Stresstab] 1 each PO DAILY #30 tablet 04/29/16 [ Rx] Allergies latex Allergy (Unknown, Verified 04/24/16 09:42) See Comments UNSURE OF REACTION- LISTED ON PATIENT'S [facility] MED LIST Results Procedures and tests throughout hospitalization: Completed Lab Orders Category Date Time Status CBC [Complete Blood Count] [HEME] Stat Lab 04/29/16 09:59 Completed [facility] Routine Lab 04/26/16 12:31 Completed Provider Date of admission: 04/24/16 01:45 Primary care physician: PCP NO Discharging clinician: Justin Conway Assessment and Plan - Patient/Caregiver Discharge Instructions Activity: resume usual activities as tolerated Diet: regular diet - Follow up Plan Follow up with: [facility] [Outside] - 04/30/16 4:00 pm (You are scheduled to see Lupe Tadeo, psychiatric prescriber, on 04/30/2016 at 4:00pm. You will also see Stef Vargas for counseling on 05/04/2016 @ 11:00am.) Functional capacity at discharge: independent ambulation Overall status at discharge: Stable Disposition: Home, Self-Care Hospital Course Hospital course: Ms. Garg is a 36 year old female admitted for exacerbation of mood disorder with manic episode and suicidal ideation and noncompliance with medication. For details of admission please see H&P. On the units patient was started on her medication and her initial lithium level was 0.3 second level after a few days was 1.0 indicating patient noncompliance before admission. Also her Lamictal was increased from 25-50 mg daily. Wellbutrin was discontinued. Patient responded well to these medication changes and she became less manic speech was not pressured and she was less labile and her sleep improved she continued to show excessive speech and writing a book about she was not disruptive or agitated. Prior to discharge patient was medically stable on her medication and denies suicidal ideation there was no evidence of any delusions or hallucinations and she was looking forward to discharge. - Time Spent with Patient Total time spent providing and/or coordinating discharge services: Greater than 30 minutes Quality - Multiple Antipsychotics Patient discharged on 2 or more antipsychotic medications: No Procedures - Procedures Procedures: Medication Management, Crisis Stabilization, Supportive Therapy, Group Therapy, Psychoeducational Therapy Mental Status Exam - Mental Status Exam Patient orientation: Yes Person, Yes Time, Yes Place, Yes Circumstance Level of alertness: Alert Patient appearance: Appropriate, Well Groomed, Disheveled Behavior: cooperative, anxious Psychomotor activity: Normal Eye contact: Maintains Eye Contact Mood description: Expansive, Labile Affect description: congruent with mood, labile Speech pattern: Normal rate, Normal rhythm, Normal tone, Appropriate, Excessive Speech Volume: Normal Thought process: Tangential, Flight of Ideas Thought Content: Yes Intact, No Suicidal ideation, No Homicidal ideation Perceptual Disturbances: No Auditory hallucinations, No Visual hallucinations Judgment: Fair Insight: Partial
== END 2016-04-29 13:34 | disposition home or self-care (01) | DRG 753 ==
LOC: EMEROO 19:14 → SUATTDRO 04-24 01:45 → 1ANU 04-24 01:45
PROVIDERS: ADMIT Psychiatry & Neurology Psychiatry; ATTEND Psychiatry & Neurology Psychiatry